=== PATIENT | female | born 1940 | race Caucasian/White ===

== ENCOUNTER 2019-11-02 15:08 | Inpatient (IN) | payer MEDICARE, OTHER ==
--- NOTE | 2019-11-02 15:37 | PDOC ---
History of Present Illness - General Chief Complaint: Wound Stated Complaint: LT HIP DRAINAGE Time Seen by Provider: 11/02/19 15:36 History Source: Patient Exam Limitations: No Limitations - History of Present Illness Initial Comments: 11/02/19 16:11 79yF w PMHx spinal fusion in c-collar, protein-calorie malnutrition, suspected Crohn's disease s/p multiple abdominal surgeries, Parkison's, on eliquis, hypothyrodism, unused R arm PICC line, multiple abdominal surgeries presenting from [facility] w 5d subjective low grade fevers, RLQ pain, and 2d midline ABD wall outpouching. First noted abd outpouching w yellow discharge while showering 2d ago, not painful. ABD pain not associated w urination/BM. Not relieved w morphine. 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 Denies n/v, cough, chest pain, SOB, urinary/bowel mvmt changes, ABD distension Past History - Medical History Allergies/Adverse Reactions: Allergies Allergy/AdvReac Type Severity Reaction Status Date / Time azithromycin [From Zithromax] Allergy Verified 11/02/19 15:12 ciprofloxacin Allergy Verified 11/02/19 15:12 Home Medications: Ambulatory Orders Acetaminophen [Pain Reliever Adult] 100 mg PO TID 11/02/19 Apixaban [Eliquis -] 5 mg PO BID 11/02/19 Carbidopa/Levodopa [Carbidopa-Levodopa 25-100 Tab] 1 each PO Q4H 11/02/19 Diclofenac Sodium [Diclofono] 2.5 gm TP BID 11/02/19 Diphenoxylate HCl/Atropine [Lomotil Tablet] 1 each PO QID 11/02/19 Donepezil HCl [Aricept -] 5 mg PO DAILY 11/02/19 Levothyroxine [Synthroid -] 25 mcg PO DAILY 11/02/19 Lidocaine 5% Patch [Lidoderm Patch -] 1 patch TP DAILY 11/02/19 Linezolid 15 ml PO DAILY 11/02/19 Loperamide HCl [Imodium A-D] 2 mg PO QID PRN 11/02/19 Miconazole Nitrate [Anti-Fungal Powder] 71 gm TP BID 11/02/19 Morphine Sulfate 15 mg PO TID 11/02/19 Ondansetron HCl [Zofran] 4 mg PO Q6H 11/02/19 Oxycodone HCl [Roxicodone] 5 mg PO HS 11/02/19 Zinc Oxide 500 gm TP BID 11/02/19 COPD: No GI Disorders: Yes (crohns) Other medical history: parkinson - Surgical History Abdominal Surgery: Yes Appendectomy: Yes - Reproductive History Is Patient Now?: No - Psycho-Social/Smoking History Smoking History: Smoker current status UNK Have you smoked in the past 12 months: No Information on smoking cessation initiated: No - Substance Abuse Hx (Audit-C & DAST Scrn) How often the patient has a drink containing alcohol: Monthly or less Number of drinks the patient has on a typical day: 1 or 2 How often the patient has six or more drinks on one occasion: Less than monthly Score: In Men: 4 or > Positive; In Women: 3 or > Positive: 2 Screen Result (Pos requires Nsg. Audit-10AR): Negative In the last yr the pt used illegal drug/Rx for NonMed reason: No Score: Yes response is considered Positive: 0 Screen Result (Positive result requires Nsg. DAST-10): Negative Review of Systems - Review of Systems Constitutional: No: Chills, Fever HEENTM: No: Eye Pain, Nose Pain Respiratory: No: Cough, Shortness of Breath Cardiac (ROS): No: Chest Pain, Palpitations ABD/GI: No: Abdominal Distended, Constipated, Diarrhea, Nausea, Vomiting : No: Burning, Dysuria Musculoskeletal: No: Back Pain, Joint Pain Integumentary: No: Bruising, Flushing Neurological: No: Headache, Seizure Psychiatric: No: Anxiety, Depression Endocrine: No: Intolerance to Cold, Intolerance to Heat Hematologic/Lymphatic: No: Anemia, Blood Clots *Physical Exam - Vital Signs Last Vital Signs Temp Pulse Resp BP Pulse Ox 98.9 F 77 18 135/50 L 100 11/02/19 15:12 11/02/19 15:12 11/02/19 15:12 11/02/19 15:12 11/02/19 15:12 - Physical Exam General Appearance: Yes: Nourished, Appropriately Dressed, Mild Distress HEENT: positive: EOMI, ALEXANDRA, Normal Voice, Hearing Grossly Normal. negative: Scleral Icterus (R), Scleral Icterus (L) Respiratory/Chest: positive: Lungs Clear, Normal Breath Sounds. negative: Chest Tender, Respiratory Distress, Crackles, Rales, Rhonchi, Stridor, Wheezing Cardiovascular: positive: Regular Rhythm, Regular Rate, S1, S2. negative: Edema, Murmur Gastrointestinal/Abdominal: positive: Normal Bowel Sounds, Tender (mild RUQ, RLQ), Flat, Soft, Other (lower midline abd surgical scars, 2cm pink outpouching w minimal yellow discharge) Musculoskeletal: negative: CVA Tenderness (R), CVA Tenderness (L) Integumentary: positive: Normal Color, Warm Neurologic: positive: Fully Oriented, Alert, Normal Mood/Affect, Normal Response, Responsive ED Treatment Course - LABORATORY CBC & Chemistry Diagram: 11/02/19 16:30 11/02/19 16:30 Medical Decision Making - Medical Decision Making 11/02/19 16:12 CT A/P w IV/PO contrast EKG - NSR, HR 74, QTc 455, no ST changes --- 79yF w PMHx spinal fusion in c-collar, protein-calorie malnutrition, Crohn's disease, Parkison's, on eliquis, hypothyrodism, unused R arm PICC line, multiple abdominal surgeries presenting from [facility] w 5d subjective low grade fevers, RLQ pain, and 2d midline ABD wall hernia adhesions, vs postop infection vs fistula vs hernia (reduceable, non painful). Low concern for SBO (not distended, still has BM) Also has hypoK 3.1, anemia 7.1 Given 10x3 KCl. Pt not complaining of pain while resting in bed Anticipate admit Signed out to night team - go to CT @730pm, finished drinking 525pm - dispo pending CT read Discharge - Discharge Information Problems reviewed: Yes Clinical Impression/Diagnosis: Abdominal pain Qualifiers: Abdominal location: right lower quadrant Qualified Code(s): R10.31 - Right lower quadrant pain Abdominal hernia Qualifiers: Hernia type: unspecified Obstruction and gangrene presence: without obstruction or gangrene Recurrence: non-recurrent Qualified Code(s): K46.9 - Unspecified abdominal hernia without obstruction or gangrene Condition: Stable - Follow up/Referral Referrals: ON STAFF,NOT [Primary Care Provider] - - Patient Discharge Instructions - Post Discharge Activity
--- NOTE | 2019-11-02 15:43 | PDOC ---
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 Patient Denies any chest pain, shortness of breath, blood per rectum, she does endorse chronic diarrhea but is unchanged from prior. Patient notes that most of her prior [place] rgeries were done at [facility]. - Physicial Exam PE: 11/02/19 16:37 GENERAL: The patient is awake, alert, and fully oriented, Nontoxic - in no acute distress. HEAD: Normocephalic, atraumatic. EYES: extraocular movements intact, sclera anicteric, conjunctiva clear. ENT: Normal voice, Moist mucous membranes. NECK: Normal range of motion, supple, Posterior cervical spine (non tender, no erythema, wound well healed) LUNGS: Breath sounds equal, clear to auscultation bilaterally. No wheezes, no rhonchi, no rales. HEART: Regular rate and rhythm, normal S1 and S2 without murmur, rub or gallop. ABDOMEN: Soft, Open wound with clear yellowish discharge in the inferior portion of her well-healed abdominal wound, There is mild erythema inferior to it and it is mildly tender to palpation, No rebound or guarding EXTREMITIES: Normal range of motion, no edema. NEUROLOGICAL: No facial assymetry, Normal speech, Moving all 4 extremities spontaneously and symmetrically PSYCH: Normal mood, normal affect. SKIN: Warm, Dry, normal turgor, - Medical Decision Making 11/02/19 16:38 Concern for possible fistula will obtain ct abdomen w contrast for further evaluation pt otheriwse comfortable signed out to evening team to reassess and disposition Heart Score/ECG Review - ECG Impressions Comment:: 11/02/19 18:19 Twelve-lead EKG was performed and reviewed by me. There is normal sinus rhythm with a normal rate. rate of [address] wave changes suggestive of acute ischemia Discharge - Discharge Information Problems reviewed: Yes Clinical Impression/Diagnosis: Hypokalemia, Intra-abdominal abscess, Fistula Abdominal pain Qualifiers: Abdominal location: right lower quadrant Qualified Code(s): R10.31 - Right lower quadrant pain Abdominal hernia Qualifiers: Hernia type: unspecified Obstruction and gangrene presence: without obstruction or gangrene Recurrence: non-recurrent Qualified Code(s): K46.9 - Unspecified abdominal hernia without obstruction or gangrene Condition: Stable Disposition: TRANSFER ACUTE CARE/OTHER HOSP - Follow up/Referral - Patient Discharge Instructions - Post Discharge Activity
[2019-11-02 16:43] LABS: BASO % 0.7 % (0-2.0); EOS % 4.7 % (0-4.5); HEMATOCRIT 21.7 % (32.4-45.2); HEMOGLOBIN 7.1 GM/dL (10.7-15.3); LYMPH % 25.1 % (8-40); MCH 30.7 pg (25.7-33.7); MCHC 32.7 g/dl (32.0-36.0); MEAN CELL VOLUME 93.7 fl (80-96); MEAN PLT VOLUME 7.6 fl (7.5-11.1); MONO % 15.2 % (3.8-10.2); NEUT % 54.3 % (42.8-82.8); PLATELET COUNT 399 K/MM3 (134-434); RBC 2.31 M/mm3 (3.60-5.2); RDW 17.1 % (11.6-15.6); WHITE BLOOD COUNT 9.3 K/mm3 (4.0-10.0)
[2019-11-02 16:55] LABS: INR 1.19 (0.83-1.09); PROTHROMBIN TIME (PATIENT) 14.1 SEC (9.7-13.0)
[2019-11-02 17:08] LABS: ALBUMIN 2.8 g/dl (3.4-5.0); ALK PHOS 140 U/L (45-117); ANION GAP 9 MMOL/L (8-16); BILIRUBIN,TOTAL 0.4 mg/dL (0.2-1); BLOOD UREA NITROGEN 9.7 mg/dL (7-18); CALCIUM 8.3 mg/dL (8.5-10.1); CHLORIDE 108 mmol/L (98-107); CO2 23 mmol/L (21-32); CREATININE 0.4 mg/dL (0.55-1.3); GLUCOSE,RANDOM 89 mg/dL (74-106); POTASSIUM 3.1 mmol/L (3.5-5.1); SGOT/AST 8 U/L (15-37); SGPT/ALT < 6 U/L (13-61); SODIUM 140 mmol/L (136-145); TOT PROT 6.7 g/dl (6.4-8.2)
[2019-11-02] MEDS ORDERED: KCL 10 MEQ IVPB 10 MEQ/100 ML INFUS.BAG IVPB ONE ×3 (18:19→22:06)
[2019-11-02] MEDS: KCL 10 MEQ IVPB 10 MEQ/100 ML INFUS.BAG IVPB SCH ×3 (18:37→22:52)
[2019-11-02] MEDS ORDERED: morphine CARPU-JECT 4 MG/1 ML DISP.SYRIN IVPUSH ONE (19:25)
--- NOTE | 2019-11-02 19:31 | PDOC ---
*Physical Exam - Vital Signs Last Vital Signs Temp Pulse Resp BP Pulse Ox 98.3 F 88 14 127/58 L 100 11/02/19 19:20 11/02/19 19:20 11/02/19 19:20 11/02/19 19:20 11/02/19 19:20 <Lluvia Downing - Last Filed: 11/02/19 20:58> - Vital Signs Last Vital Signs Temp Pulse Resp BP Pulse Ox 98.9 F 77 14 135/50 L 100 11/02/19 15:12 11/02/19 15:12 11/02/19 15:40 11/02/19 15:12 11/02/19 15:40 - Physical Exam 11/03/19 08:11 GENERAL: Awake, alert, and fully oriented, in mild distress HEAD: No signs of trauma, normocephalic, atraumatic EYES: PERRLA, EOMI, sclera anicteric, conjunctiva clear ENT: Auricles normal inspection, hearing grossly normal, nares patent, oropharynx clear without exudates. Moist mucosa NECK:pt in c-collar LUNGS: No distress, speaks full sentences, clear to auscultation bilaterally HEART: Regular rate and rhythm, normal S1 and S2, no murmurs, rubs or gallops, peripheral pulses normal and equal bilaterally. ABDOMEN: Normal bowel sounds, tenderness to palpation in RUQ,RLQ, lower midline abd surgical scar, 2 cm pink outpaching with minimal yellow discharge EXTREMITIES : Normal inspection, no edema. No clubbing or cyanosis. NEUROLOGICAL: . Normal speech no focal sensorimotor deficits SKIN: Warm, Dry, normal turgor, no rashes or lesions noted <Guanaco Cheatham - Last Filed: 11/03/19 08:14> ED Treatment Course - LABORATORY CBC & Chemistry Diagram: 11/02/19 16:30 11/02/19 16:30 - ADDITIONAL ORDERS Additional order review: Laboratory Results 11/02/19 11/02/19 11/02/19 16:30 16:30 16:30 PT with INR 14.10 H INR 1.19 H Sodium Potassium Chloride Carbon Dioxide Anion Gap BUN Creatinine Est GFR (CKD-EPI)AfAm Est GFR (CKD-EPI)NonAf Random Glucose Lactic Acid 0.8 Calcium Total Bilirubin AST ALT Alkaline Phosphatase Total Protein Albumin Blood Type O POSITIVE Antibody Screen Negative 11/02/19 16:30 PT with INR INR Sodium 140 Potassium 3.1 L Chloride 108 H Carbon Dioxide 23 Anion Gap 9 BUN 9.7 Creatinine 0.4 L Est GFR (CKD-EPI)AfAm 113.21 Est GFR (CKD-EPI)NonAf 97.68 Random Glucose 89 Lactic Acid Calcium 8.3 L Total Bilirubin 0.4 AST 8 L ALT < 6 L Alkaline Phosphatase 140 H Total Protein 6.7 Albumin 2.8 L Blood Type Antibody Screen 11/02/19 16:30 RBC 2.31 L MCV 93.7 MCHC 32.7 RDW 17.1 H MPV 7.6 Neutrophils % 54.3 Lymphocytes % 25.1 Monocytes % 15.2 H Eosinophils % 4.7 H Basophils % 0.7 - Medications Given in the ED: ED Medications Discontinued Medications Generic Name Dose Route Start Last Admin Trade Name Freq PRN Reason Stop Dose Admin Potassium Chloride 10 meq in 100 mls @ 100 mls/hr 11/02/19 17:45 11/02/19 20:26 Potassium Chloride 10 Meq Premix Ivpb - IVPB 11/02/19 20:44 100 mls/hr Q60M QUETA Administration Morphine Sulfate 4 mg 11/02/19 19:25 11/02/19 20:27 Morphine Injection - IVPUSH 11/02/19 19:26 4 mg ONCE ONE Administration <Lluvia Downing - Last Filed: 11/02/19 20:58> - LABORATORY CBC & Chemistry Diagram: 11/02/19 16:30 11/02/19 22:30 - ADDITIONAL ORDERS Additional order review: Laboratory Results 11/02/19 11/02/19 11/02/19 16:30 16:30 16:30 PT with INR 14.10 H INR 1.19 H Sodium Potassium Chloride Carbon Dioxide Anion Gap BUN Creatinine Est GFR (CKD-EPI)AfAm Est GFR (CKD-EPI)NonAf Random Glucose Lactic Acid 0.8 Calcium Total Bilirubin AST ALT Alkaline Phosphatase Total Protein Albumin Blood Type O POSITIVE Antibody Screen Negative 11/02/19 16:30 PT with INR INR Sodium 140 Potassium 3.1 L Chloride 108 H Carbon Dioxide 23 Anion Gap 9 BUN 9.7 Creatinine 0.4 L Est GFR (CKD-EPI)AfAm 113.21 Est GFR (CKD-EPI)NonAf 97.68 Random Glucose 89 Lactic Acid Calcium 8.3 L Total Bilirubin 0.4 AST 8 L ALT < 6 L Alkaline Phosphatase 140 H Total Protein 6.7 Albumin 2.8 L Blood Type Antibody Screen 11/02/19 16:30 RBC 2.31 L MCV 93.7 MCHC 32.7 RDW 17.1 H MPV 7.6 Neutrophils % 54.3 Lymphocytes % 25.1 Monocytes % 15.2 H Eosinophils % 4.7 H Basophils % 0.7 <Guanaco Cheatham - Last Filed: 11/03/19 08:14> Medical Decision Making - Medical Decision Making 11/02/19 19:29 79 yo female with Cervical collar, possible crohns, and history of colovaginal fistula presents to ED for fever and RLQ pain and outpouchng. Pt will get rule out between fistula vs herniavs infection. Pt surgeon at [facility] will call if surgical pathology. K was low giving K. Contrast given at 5:[address] at 7:30. 11/02/19 21:[address] shows fistula with RLQ abscess. Pt surgeon is Dr. Kike Arana of [facility], but pt refuses to add him to care because pt is sueing surgeon and also refuses transfer. Pt will be given Vancomycin and zosyn and will be admitted. Pt adamant about not getting surgery today consult to surgery deferred to admitting team. 11/02/19 22:[address] discussion with resident Dr. Miles . Pt HPI , ED course and current plan of management was discussed. Will admit pt to med/surg to Dr. Campos. 11/02/19 22:44 Pt was given loperamide because pt having active diarrhea. Pt explains that she takes loperamide after every meal and was being very difficult when explaining that loperamide may not be best course of action. Pt understood but still wanted loperamide for symptoms so gave 2 mg loperamide. <Guanaco Cheatham - Last Filed: 11/03/19 08:14> Discharge - Discharge Information Problems reviewed: Yes - Admission Yes <Lluvia Downing - Last Filed: 11/02/19 20:58> <Guanaco Cheatham - Last Filed: 11/03/19 08:14> - Discharge Information Clinical Impression/Diagnosis: Hypokalemia, Intra-abdominal abscess, Fistula Abdominal pain Qualifiers: Abdominal location: right lower quadrant Qualified Code(s): R10.31 - Right lower quadrant pain Abdominal hernia Qualifiers: Hernia type: unspecified Obstruction and gangrene presence: without obstruction or gangrene Recurrence: non-recurrent Qualified Code(s): K46.9 - Unspecified abdominal hernia without obstruction or gangrene Condition: Stable
[2019-11-02] MEDS ORDERED: morphine SULFATE 4 MG/ML VIAL ONE (19:36)
[2019-11-02] MEDS ORDERED: MAGNESIUM SULF 50% (8.12 MEQ/2 ML-1 GM VIAL) IVPB ONE (19:43)
[2019-11-02] MEDS ORDERED: MAGNESIUM SULF 50% (8.12 MEQ/2 ML-1 GM VIAL) ONE (20:12)
[2019-11-02] MEDS ORDERED: VANCOMYCIN 1,000 MG in DEXTROSE 5%-WATER - 250 ML IVPB ONE (20:57)
[2019-11-02] MEDS ORDERED: PIPERACILLIN/TAZOB 4.5 GM 4.5 GM in DEXTROSE 5%-WATER 100 ML IVPB ONE (20:57)
[2019-11-02] MEDS ORDERED: SODIUM CHLORIDE 1,000 ML IV STA (20:57)
--- NOTE | 2019-11-02 21:08 | PDOC ---
*Physical Exam - Vital Signs Last Vital Signs Temp Pulse Resp BP Pulse Ox 98.3 F 88 14 127/58 L 100 11/02/19 19:20 11/02/19 19:20 11/02/19 19:20 11/02/19 19:20 11/02/19 19:20 ED Treatment Course - LABORATORY CBC & Chemistry Diagram: 11/02/19 16:30 11/02/19 22:30 - ADDITIONAL ORDERS Additional order review: Laboratory Results 11/02/19 11/02/19 11/02/19 16:30 16:30 16:30 PT with INR 14.10 H INR 1.19 H Sodium Potassium Chloride Carbon Dioxide Anion Gap BUN Creatinine Est GFR (CKD-EPI)AfAm Est GFR (CKD-EPI)NonAf Random Glucose Lactic Acid 0.8 Calcium Total Bilirubin AST ALT Alkaline Phosphatase Total Protein Albumin Blood Type O POSITIVE Antibody Screen Negative 11/02/19 16:30 PT with INR INR Sodium 140 Potassium 3.1 L Chloride 108 H Carbon Dioxide 23 Anion Gap 9 BUN 9.7 Creatinine 0.4 L Est GFR (CKD-EPI)AfAm 113.21 Est GFR (CKD-EPI)NonAf 97.68 Random Glucose 89 Lactic Acid Calcium 8.3 L Total Bilirubin 0.4 AST 8 L ALT < 6 L Alkaline Phosphatase 140 H Total Protein 6.7 Albumin 2.8 L Blood Type Antibody Screen 11/02/19 16:30 RBC 2.31 L MCV 93.7 MCHC 32.7 RDW 17.1 H MPV 7.6 Neutrophils % 54.3 Lymphocytes % 25.1 Monocytes % 15.2 H Eosinophils % 4.7 H Basophils % 0.7 - Medications Given in the ED: ED Medications Discontinued Medications Generic Name Dose Route Start Last Admin Trade Name Freq PRN Reason Stop Dose Admin Potassium Chloride 10 meq in 100 mls @ 100 mls/hr 11/02/19 17:45 11/02/19 20:26 Potassium Chloride 10 Meq Premix Ivpb - IVPB 11/02/19 20:44 100 mls/hr Q60M QUETA Administration Morphine Sulfate 4 mg 11/02/19 19:25 11/02/19 20:27 Morphine Injection - IVPUSH 11/02/19 19:26 4 mg ONCE ONE Administration Medical Decision Making - Medical Decision Making 11/02/19 21:05 I received pt on signout. Pt receievd her CT abd pelvis; it shows that she has an abscess in the RLQ vs appendicitis; pt tells us her appendix was removed years ago. Pt also has a small fistula tract in the area of concern in her abdomen. Pt;s CT shows swollen loops of bowel perhaps consistent with obstruction. Pt demands to eat something. States that she has no obstrection and that she is hungry and moving her bowels. Pt refusing to go back to her [facility] surgeon or to that hospital, as she is suing them. Pt wants to stay here or go to [facility] in [place]. Pt will be admitted to our medical hospitalist team. They can consult surgeons pulmonologist/intensivist. 11/02/19 21:08 Pt will be given zosyn and vancomycin and she will be given something to eat. Discharge - Discharge Information Problems reviewed: Yes Clinical Impression/Diagnosis: Hypokalemia, Intra-abdominal abscess, Fistula Abdominal pain Qualifiers: Abdominal location: right lower quadrant Qualified Code(s): R10.31 - Right lower quadrant pain Abdominal hernia Qualifiers: Hernia type: unspecified Obstruction and gangrene presence: without obstruction or gangrene Recurrence: non-recurrent Qualified Code(s): K46.9 - Unspecified abdominal hernia without obstruction or gangrene Condition: Stable - Follow up/Referral - Patient Discharge Instructions - Post Discharge Activity
[2019-11-02] MEDS ORDERED: MAGNESIUM 1GM/D5W - 1 GM/100 ML IVPB IVPB ONE (21:17)
[2019-11-02] MEDS ORDERED: PIPERACILLIN/TAZOB 4.5 GM 4.5 GM/100 ML BAG IVPB ONE (21:17)
[2019-11-02] MEDS ORDERED: VANCOMYCIN 1 GRAM (PRE-DOCKED) 1,000 MG/250 ML BAG IVPB ONE (21:17)
--- NOTE | 2019-11-02 22:08 | PN ---
Teaching Attending Note Name of Resident: Prashant Roberts ATTENDING PHYSICIAN STATEMENT I saw and evaluated the patient. I reviewed the resident's note and discussed the case with the resident. I agree with the resident's findings and plan as documented. SUBJECTIVE: Patient is an 79 year old woman with a PMH of Parkinson' disease, Spinal fusion in C-collar (?on Eliquis), Protein-calorie malnutrition, Hypothyrodism, Suspected Crohn's disease, Multiple abdominal surgeries (colovaginal fistula? with complications, possible partial colectomy), Unused Right PICC line who presents with fevers and 2 days of abdominal wound discharge. States she was showering a few days ago and noticed some discharge and drainage from her anterior abdominal wall. Patient Denies any chest pain, shortness of breath or blood per rectum. Reports having chronic diarrhea but is unchanged from prior. Patient notes that most of her prior surgeries were done at [facility] in [place] but does not want to be transferred to [place]. Denies alcohol, tobacco or illicit drug use. No sick contacts or recent travels. Family history is unremarkable. OBJECTIVE: Alert Vital Signs Period Temp Pulse Resp BP Sys/Cardenas Pulse Ox Last 24 Hr 98.3 F-98.9 F 77-88 14-18 127-135/50-58 100-100 HEENT: No Jaundice, eye redness or discharge, PERRLA, EOMI. Normocephalic, atraumatic. External ears are normal and hearing is grossly intact. No nasal discharge. Neck: Supple, nontender. No palpable adenopathy or thyromegaly. No JVD Chest: Good effort. Clear to auscultation and percussion. Heart: Regular. No S3, rub or murmur Abdomen: Not distended, soft. Wound in the lower abdomen with clear yellowish discharge; mild surrounding erythema, tender to palpation. No HSM. No rebound or guarding. Normal bowel sounds. Ext: Peripheral pulses intact. No leg edema. Skin: Warm and dry. No petechiae, rash or ecchymosis. Neuro: Alert. Oriented x3. CN 2-12 grossly intact. Sensation grossly intact in all four extremities and DTR are symmetric. Psych: Appropriate mood and affect. Good insight. Home Medications Medication Instructions Recorded Acetaminophen [Pain Reliever Adult] 100 mg PO TID 11/02/19 Apixaban [Eliquis -] 5 mg PO BID 11/02/19 Carbidopa/Levodopa 1 each PO Q4H 11/02/19 [Carbidopa-Levodopa 25-100 Tab] Diclofenac Sodium [Diclofono] 2.5 gm TP BID 11/02/19 Diphenoxylate HCl/Atropine 1 each PO QID 11/02/19 [Lomotil Tablet] Donepezil HCl [Aricept -] 5 mg PO DAILY 11/02/19 Levothyroxine [Synthroid -] 25 mcg PO DAILY 11/02/19 Lidocaine 5% Patch [Lidoderm Patch 1 patch TP DAILY 11/02/19 -] Linezolid 15 ml PO DAILY 11/02/19 Loperamide HCl [Imodium A-D] 2 mg PO QID PRN 11/02/19 Miconazole Nitrate [Anti-Fungal 71 gm TP BID 11/02/19 Powder] Morphine Sulfate 15 mg PO TID 11/02/19 Ondansetron HCl [Zofran] 4 mg PO Q6H 11/02/19 Oxycodone HCl [Roxicodone] 5 mg PO HS 11/02/19 Zinc Oxide 500 gm TP BID 11/02/19 Abnormal Lab Results 11/02/19 11/02/19 11/02/19 16:30 16:30 16:30 RBC 2.31 L Hgb 7.1 L Hct 21.7 L RDW 17.1 H Monocytes % 15.2 H Eosinophils % 4.7 H PT with INR 14.10 H INR 1.19 H Potassium 3.1 L Chloride 108 H Creatinine 0.4 L Calcium 8.3 L AST 8 L ALT < 6 L Alkaline Phosphatase 140 H Albumin 2.8 L 11/02/19 22:30 RBC Hgb Hct RDW Monocytes % Eosinophils % PT with INR INR Potassium 3.4 L Chloride Creatinine Calcium AST ALT Alkaline Phosphatase Albumin Current Medications Generic Name Dose Route Start Last Admin Trade Name Freq PRN Reason Stop Dose Admin Acetaminophen 650 mg 11/03/19 01:36 Tylenol - PO Q6H PRN Fever Or Pain Heparin Sodium (Porcine) 5,000 unit 11/03/19 06:00 Heparin - SQ TID QUETA Sodium Chloride 1,000 mls @ 75 mls/hr 11/03/19 02:00 11/03/19 02:17 Normal Saline - IV 75 mls/hr ASDIR QUETA Administration Potassium Chloride 10 meq in 100 mls @ 100 mls/hr 11/03/19 02:15 11/03/19 02:32 Potassium Chloride 10 Meq Premix Ivpb - IVPB 11/03/19 05:14 100 mls/hr Q60M QUETA Administration ASSESSMENT AND PLAN: 1. Abdominal abscess/fistula - CT abdomnen/pelvis with IV and oral contrast shows that she has an abscess in the RLQ and also a small fistula tract in the area of concern in her abdomen; swollen loops of bowel perhaps consistent with obstruction. Patient insists she is moving her bowels well. Pulmonary nodules were also noted on CT scan - will get a chest CT tomorrow and consult Pulmonary. Patient is refusing to go back to her [facility]. ER staff prescribed IV Vancomycin, Zosyn, IV MgSO4, Imodium, IV KCL, IV Morphine and IV NS for the patient. Will send abdominal wound discharge for culture, keep her NPO, continue antibiotics, IV NS and consult Surgery and ID. Viral testing for COVID-19 ordered and patient placed on airborne, droplet and contact isolation. EKG shows NSR at 74/minute and QTc [address]-T wave changes. Initial troponin is negative. Will avoid drugs that may prolong QTc. Hypokalemia is unexplained. Will check serum magnesium, give IV and PO KCL. Will continue comprehensive care for all of patients comorbid conditions including Synthroid for hypothyroidism. 2. Hypoalbuminemia/Under weight - Possibly due to combined effects of malnutrition and inflammation associated with comorbid conditions. Will ensure adequate dietary protein intake and also consult metal tube cutter. Urinalysis pending. 3. Severe anemia - Likely multifactorial. Will do basic anemia work up including serial stool guaiacs, reticulocyte count and iron studies. Would need PRBC transfusion before any planned surgery. Would benefit from Procrit therapy once iron replete. 4. DVT prophylaxis - Will hold Eliquis for now in case she needs surgery. Will use Heparin 5000 u sq tid. 5. Advance directives - Full code
[2019-11-02] MEDS ORDERED: LOPERAMIDE HCL 2 MG CAPSULE PO ONE (22:43)
[2019-11-02] MEDS ORDERED: LOPERAMIDE HCL 2 MG CAPSULE ONE (23:00)
[2019-11-02 23:06] LABS: POTASSIUM 3.4 mmol/L (3.5-5.1)
[2019-11-03] MEDS ORDERED: ACETAMINOPHEN 325 MG TABLET (FP) PO PRN (01:36)
[2019-11-03] MEDS ORDERED: POTASSIUM CHLORIDE TABS 10 MEQ TABLET.ER (FP) PO ONE (01:37)
[2019-11-03] MEDS ORDERED: MORPHINE SULFATE 2 MG/ML VIAL IVPUSH ONE (01:56)
[2019-11-03 02:02] VITALS: BMI 16.6
[2019-11-03] MEDS: SODIUM CHLORIDE 1,000 ML IV SCH ×2 (02:17→21:36)
[2019-11-03] MEDS: KCL 10 MEQ IVPB 10 MEQ/100 ML INFUS.BAG IVPB SCH ×3 (02:32→04:33)
[2019-11-03 04:29] LABS: MAGNESIUM 1.7 mg/dL (1.8-2.4)
[2019-11-03] MEDS: HEPARIN NA (PORCINE) 5,000 UNITS/ML 1ML VIAL SQ SCH ×3 (06:12→21:35)
--- NOTE | 2019-11-03 06:38 | HP ---
CHIEF COMPLAINT: RLQ pain, abdominal wall outpouching, yellow discharge PCP: HISTORY OF PRESENT ILLNESS: 79 F PMH Parkinson's, Hypothyroidism, protein-calorie malnutrition, s/p spinal fusion now with a c-collar, unused R arm PICC line, presented from [facility] with 5 days of subjective fever and RLQ pain. 2 days ago, she started experiencing a midline abdominal wall outpouching while showering that was not painful. Yellow discharge was appreciated when a towel was applied to the area. Endorses no improving factors for the pain, but endorses it was TTP. ER course was notable for: (1) Hgb/Hct 7.1/21.7, (2) K+ 3.1 (3) CTAP: 6.4 X 1.1 fluid & air structure, on basis of abscess. Subcentimeter p ocket of air within pelvic peritoneal cavity; small abscess or fistula tract. Air/gas within subcutaneous fat. Severly dilated contrast opacified small bowel loops within the lower plevis with a 4.3 cm diameter, which could be on the basis of partial obstruction or localized ileus. Common bile duct dilated at 1 cm diameter. 0.7 cm opacities within superior segment R lower lobe, which could represent scarring or nonspecific nodules. 3 month follow-up CT suggested (4) IV Vancomycin, Zosyn, Imodium, IV KCL, IV Morphine, IV magnesium, NS Recent Travel: denies PAST MEDICAL HISTORY: Parkinson's, Hypothyroidism, Crohn's disease, protein-calorie malnutrition, s/p spinal fusion now with a c-collar, R arm PICC line Pt was evaluated for neck pain and underwent spinal fusion about 2.5 months ago. Endorsed that she was taking linezolid for "pus" in her abdomen and had a R arm picc line for this reason. Pt endorses chronic diarrhea after her colectomy procedure. PAST SURGICAL HISTORY: R hip replacement, appendectomy (1948), colon-vaginal fistula (2019), colon resection s/p colostomy (2019), colostomy reversal Social History: Smoking:denied Alcohol: denied Drugs: denied resides at [facility]. Allergies azithromycin [From Zithromax] Allergy (Verified 11/02/19 15:12) ciprofloxacin Allergy (Verified 11/02/19 15:12) HOME MEDICATIONS: Home Medications Medication Instructions Recorded Acetaminophen [Pain Reliever Adult] 100 mg PO TID 11/02/19 Apixaban [Eliquis -] 5 mg PO BID 11/02/19 Carbidopa/Levodopa 1 each PO Q4H 11/02/19 [Carbidopa-Levodopa 25-100 Tab] Diclofenac Sodium [Diclofono] 2.5 gm TP BID 11/02/19 Diphenoxylate HCl/Atropine 1 each PO QID 11/02/19 [Lomotil Tablet] Donepezil HCl [Aricept -] 5 mg PO DAILY 11/02/19 Levothyroxine [Synthroid -] 25 mcg PO DAILY 11/02/19 Lidocaine 5% Patch [Lidoderm Patch 1 patch TP DAILY 11/02/19 -] Linezolid 15 ml PO DAILY 11/02/19 Loperamide HCl [Imodium A-D] 2 mg PO QID PRN 11/02/19 Miconazole Nitrate [Anti-Fungal 71 gm TP BID 11/02/19 Powder] Morphine Sulfate 15 mg PO TID 11/02/19 Ondansetron HCl [Zofran] 4 mg PO Q6H 11/02/19 Oxycodone HCl [Roxicodone] 5 mg PO HS 11/02/19 Zinc Oxide 500 gm TP BID 11/02/19 REVIEW OF SYSTEMS CONSTITUTIONAL: Absent: fever, chills, diaphoresis, generalized weakness, malaise, loss of appetite, weight change HEENT: Absent: rhinorrhea, nasal congestion, throat pain, throat swelling, difficulty swallowing, mouth swelling, ear pain, eye pain, visual changes CARDIOVASCULAR: Absent: chest pain, syncope, palpitations, irregular heart rate, lightheadedne ss, peripheral edema RESPIRATORY: Absent: cough, shortness of breath, dyspnea with exertion, orthopnea, wheezing, stridor, hemoptysis GASTROINTESTINAL: nausea, vomiting, chronic diarrhea Absent: abdominal pain, abdominal distension, constipation, melena, hematochezia GENITOURINARY: Absent: dysuria, frequency, urgency, hesitancy, hematuria, flank pain, genital pain MUSCULOSKELETAL: Absent: myalgia, arthralgia, joint swelling, back pain, neck pain SKIN: Absent: rash, itching, pallor HEMATOLOGIC/IMMUNOLOGIC: Absent: easy bleeding, easy bruising, lymphadenopathy, frequent infections ENDOCRINE: Absent: unexplained weight gain, unexplained weight loss, heat intolerance, cold intolerance NEUROLOGIC: Absent: headache, focal weakness or paresthesias, dizziness, unsteady gait, seizure, mental status changes, bladder or bowel incontinence PSYCHIATRIC: Absent: anxiety, depression, suicidal or homicidal ideation, hallucinations. PHYSICAL EXAMINATION Vital Signs - 24 hr 11/02/19 11/02/19 11/02/19 15:12 15:40 19:20 Temperature 98.9 F 98.3 F Pulse Rate 77 Pulse Rate [ 88 Radial] Respiratory 18 14 14 Rate Blood Pressure 135/50 L Blood Pressure 127/58 L [Left Arm] O2 Sat by Pulse 100 100 100 Oximetry (%) 11/02/19 11/03/19 11/03/19 23:10 01:08 01:26 Temperature 98.5 F 98.5 F Pulse Rate 79 79 Pulse Rate [ 82 Radial] Respiratory 15 16 15 Rate Blood Pressure 127/50 L 127/50 L Blood Pressure 153/61 [Left Arm] O2 Sat by Pulse 100 100 100 Oximetry (%) 11/03/19 11/03/19 03:00 06:00 Temperature 98.1 F Pulse Rate 71 Pulse Rate [ Radial] Respiratory 16 16 Rate Blood Pressure 104/55 L Blood Pressure [Left Arm] O2 Sat by Pulse 100 95 Oximetry (%) GENERAL: Awake, alert, and fully oriented, in no acute distress. HEAD: Normal with no signs of trauma. EYES: Pupils equal, round and reactive to light, extraocular movements intact, sclera anicteric, conjunctiva clear. No lid lag. EARS, NOSE, THROAT: Ears normal, nares patent, oropharynx clear without exudates. Moist mucous membranes. NECK: Normal range of motion, supple without lymphadenopathy, JVD, or masses. LUNGS: Breath sounds equal, clear to auscultation bilaterally. No wheezes, and no crackles. No accessory muscle use. HEART: Regular rate and rhythm, normal S1 and S2 without murmur, rub or gallop. ABDOMEN: Soft, normoactive bowel sounds, wound in area below umbilicus w/ yellow discharge. TTP. lower abd surgical scar UPPER EXTREMITIES: 2+ pulses, warm, well-perfused. No cyanosis. No clubbing. No peripheral edema. 4/5 strength. sensation intact LOWER EXTREMITIES: 2+ pulses, warm, well-perfused. No calf tenderness. No peripheral edema. 3/5 strength b/l. Sensation intact NEUROLOGICAL: Cranial nerves II-XII intact. Normal speech. PSYCHIATRIC: Appropriate affect. Laboratory Results - last 24 hr 11/02/19 11/02/19 11/02/19 16:30 16:30 16:30 WBC 9.3 RBC 2.31 L Hgb 7.1 L Hct 21.7 L MCV 93.7 MCH 30.7 MCHC 32.7 RDW 17.1 H Plt Count 399 MPV 7.6 Absolute Neuts (auto) 5.1 Neutrophils % 54.3 Lymphocytes % 25.1 Monocytes % 15.2 H Eosinophils % 4.7 H Basophils % 0.7 Nucleated RBC % 0 PT with INR INR Sodium 140 Potassium 3.1 L Chloride 108 H Carbon Dioxide 23 Anion Gap 9 BUN 9.7 Creatinine 0.4 L Est GFR (CKD-EPI)AfAm 113.21 Est GFR (CKD-EPI)NonAf 97.68 Random Glucose 89 Lactic Acid 0.8 Calcium 8.3 L Magnesium Total Bilirubin 0.4 AST 8 L ALT < 6 L Alkaline Phosphatase 140 H Total Protein 6.7 Albumin 2.8 L Blood Type Antibody Screen 11/02/19 11/02/19 11/02/19 16:30 16:30 22:30 WBC RBC Hgb Hct MCV MCH MCHC RDW Plt Count MPV Absolute Neuts (auto) Neutrophils % Lymphocytes % Monocytes % Eosinophils % Basophils % Nucleated RBC % PT with INR 14.10 H INR 1.19 H Sodium Potassium 3.4 L Chloride Carbon Dioxide Anion Gap BUN Creatinine Est GFR (CKD-EPI)AfAm Est GFR (CKD-EPI)NonAf Random Glucose Lactic Acid Calcium Magnesium 1.7 L Total Bilirubin AST ALT Alkaline Phosphatase Total Protein Albumin Blood Type O POSITIVE Antibody Screen Negative EKG: NSR, 74 bpm, QTC 455 ASSESSMENT/PLAN: 79 F PMH Parkinson's, Hypothyroidism, Crohn's disease, protein-calorie malnutrition, s/p spinal fusion now with a c-collar, unused R arm PICC line, p/w fever & discharge from abdominal wound. #Abdominal abscess & fistula -CTAP: 6.4 X 1.1 fluid & air structure, on basis of abscess. Subcentimeter pocket of air within pelvic peritoneal cavity; small abscess or fistula tract. -c/w vanc zosyn -culture of discharge from wound ordered. -surgery and ID consulted -loperamide 2 mg PO QID for diarrhea -f/u c Diff #Hypokalemia -likely 2/2 GI loss -replete with KCl. -monitor K+ as QTc is 455. F/u magnesium also. #Normocytic Anemia -f/u iron studies -f/u reticulocyte count #Lung nodules -CTAP: 0.7 cm opacities within superior segment R lower lobe, which could represent scarring or nonspecific nodules. -Chest CT no contrast ordered -f/u pulm c/s #Hypoalbuminemia -low BMI -likely 2/2 protein-calorie malnutrition that patient had come to the hospital with -f/u Supervisor [employer] consult #Hypothyroidism -c/w synthroid #DVT PPX -hold eliquis as pt may undergo surgery. -heparin 5000 sq TID, instead #FEN NS @ 75 cc/hr monitor lytes NPO after midnight as pt may undergo surgery in AM #DISPO maintain med surg Visit type - Medication Review Med list reviewed for High Risk Meds patients 65 and older: Yes - Emergency Visit Emergency Visit: Yes ED Registration Date: 11/02/19 Care time: The patient presented to the Emergency Department on the above date and was hospitalized for further evaluation of their emergent condition. - New Patient This patient is new to me today: Yes Date on this admission: 11/03/19 - Critical Care Critical Care patient: No ATTENDING PHYSICIAN STATEMENT I saw and evaluated the patient. I reviewed the resident's note and discussed the case with the resident. I agree with the resident's findings and plan as documented. SUBJECTIVE: OBJECTIVE: ASSESSMENT AND PLAN:
[2019-11-03 07:45] LABS: BASO % 0.6 % (0-2.0); EOS % 7.2 % (0-4.5); HEMATOCRIT 20.5 % (32.4-45.2); LYMPH % 20.8 % (8-40); MEAN PLT VOLUME 7.8 fl (7.5-11.1); MONO % 16.3 % (3.8-10.2); NEUT % 55.1 % (42.8-82.8); PLATELET COUNT 363 K/MM3 (134-434); RBC 2.18 M/mm3 (3.60-5.2); RDW 17.1 % (11.6-15.6); WHITE BLOOD COUNT 7.4 K/mm3 (4.0-10.0)
[2019-11-03 08:11] LABS: ALBUMIN 2.4 g/dl (3.4-5.0); BILIRUBIN,TOTAL 0.4 mg/dL (0.2-1); BLOOD UREA NITROGEN 5.1 mg/dL (7-18); CREATININE 0.4 mg/dL (0.55-1.3); MAGNESIUM 1.8 mg/dL (1.8-2.4); PHOSPHOROUS 3.6 mg/dL (2.5-4.9); POTASSIUM 4.1 mmol/L (3.5-5.1); TOT PROT 5.9 g/dl (6.4-8.2)
[2019-11-03 08:38] LABS: HEMOGLOBIN 6.8 GM/dL (10.7-15.3)
[2019-11-03] MEDS ORDERED: PIPERACILLIN/TAZOBACTAM 3.375 GM VIAL IVPB ONE ×2 (08:41→16:25)
[2019-11-03] MEDS ORDERED: DEXTROSE 5%-WATER - 50 ML IVPB ONE ×2 (08:42→16:25)
[2019-11-03] MEDS: PIPERACILLIN/TAZOB 3.375 GM 3.375 GM in DEXTROSE 5%-WATER - 50 ML IVPB SCH ×2 (09:03→17:23)
[2019-11-03] MEDS: LEVOTHYROXINE NA 25 MCG TABLET (FP) PO SCH (09:04)
[2019-11-03] MEDS: CARBIDOPA/LEVODOPA 25/100 TABLET (FP) PO SCH ×4 (09:04→21:28)
[2019-11-03] MEDS: MORPHINE SULFATE 2 MG/ML VIAL IVPUSH PRN ×4 (09:17→23:01)
[2019-11-03] MEDS: MICONAZOLE NITRATE 14 GM/TUBE TUBE TP SCH ×2 (09:21→21:35)
[2019-11-03] MEDS ORDERED: LOPERAMIDE HCL 2 MG CAPSULE PO PRN (10:00)
--- NOTE | 2019-11-03 10:00 | PN ---
Progress Note (short form) - Note Progress Note: PULMONARY CONSULTATION DICTATED 11/03/19 IMP FEVER/ABD PAIN / ABSCESS PULMONARY NODULE ?INFLAMMATORY HYPOTHYROID PARKINSONS ANEMIA H/O SPINAL FUSION PLAN O2 NEEDED ABX SURGERY EVALUATION CHEST CT MONITOR LYTES,H+H NORMAL TRANSFUSION THRESHOLD DR ELDER Problem List - Problems (1) Anemia Code(s): D64.9 - ANEMIA, UNSPECIFIED (2) Abdominal pain Code(s): R10.9 - UNSPECIFIED ABDOMINAL PAIN Qualifiers: Abdominal location: right lower quadrant Qualified Code(s): R10.31 - Right lower quadrant pain (3) Intra-abdominal abscess Code(s): K65.1 - PERITONEAL ABSCESS (4) Lung nodule Code(s): R91.1 - SOLITARY PULMONARY NODULE (5) Parkinson disease Code(s): G20 - PARKINSON'S DISEASE
--- NOTE | 2019-11-03 10:11 | PN ---
Physical Exam: SUBJECTIVE: Patient seen and examined OBJECTIVE: Vital Signs Period Temp Pulse Resp BP Sys/Cardenas Pulse Ox Last 24 Hr 98.1 F-98.9 F 71-88 14-18 104-153/50-61 95-100 GENERAL: The patient is awake, alert, and fully oriented, in no acute distress, cachetic HEAD: Normal with no signs of trauma. EYES: PERRL, extraocular movements intact, sclera anicteric, conjunctiva clear. No ptosis. ENT: Ears normal, nares patent, oropharynx clear without exudates, moist mucous membranes. NECK: Trachea midline, severely limited ROM LUNGS: Breath sounds equal, clear to auscultation bilaterally, no wheezes, no crackles, no accessory muscle use. HEART: Regular rate and rhythm, S1, S2 without murmur, rub or gallop. ABDOMEN: Soft, nontender, nondistended, normoactive bowel sounds, no guarding, no rebound, no hepatosplenomegaly, no masses, draining sinus EXTREMITIES: 2+ pulses, warm, well-perfused, no edema. PSYCH: Normal mood, normal affect. SKIN: Warm, dry, normal turgor, no rashes or lesions noted Laboratory Results - last 24 hr 11/02/19 11/02/19 11/02/19 16:30 16:30 16:30 WBC 9.3 RBC 2.31 L Hgb 7.1 L Hct 21.7 L MCV 93.7 MCH 30.7 MCHC 32.7 RDW 17.1 H Plt Count 399 MPV 7.6 Absolute Neuts (auto) 5.1 Neutrophils % 54.3 Lymphocytes % 25.1 Monocytes % 15.2 H Eosinophils % 4.7 H Basophils % 0.7 Nucleated RBC % 0 Retic Count PT with INR INR Sodium 140 Potassium 3.1 L Chloride 108 H Carbon Dioxide 23 Anion Gap 9 BUN 9.7 Creatinine 0.4 L Est GFR (CKD-EPI)AfAm 113.21 Est GFR (CKD-EPI)NonAf 97.68 Random Glucose 89 Lactic Acid 0.8 Calcium 8.3 L Phosphorus Magnesium Iron TIBC Iron Saturation Unsaturated IBC Ferritin Total Bilirubin 0.4 AST 8 L ALT < 6 L Alkaline Phosphatase 140 H Total Protein 6.7 Albumin 2.8 L Blood Type Antibody Screen Crossmatch 11/02/19 11/02/19 11/02/19 16:30 16:30 22:30 WBC RBC Hgb Hct MCV MCH MCHC RDW Plt Count MPV Absolute Neuts (auto) Neutrophils % Lymphocytes % Monocytes % Eosinophils % Basophils % Nucleated RBC % Retic Count PT with INR 14.10 H INR 1.19 H Sodium Potassium 3.4 L Chloride Carbon Dioxide Anion Gap BUN Creatinine Est GFR (CKD-EPI)AfAm Est GFR (CKD-EPI)NonAf Random Glucose Lactic Acid Calcium Phosphorus Magnesium 1.7 L Iron TIBC Iron Saturation Unsaturated IBC Ferritin Total Bilirubin AST ALT Alkaline Phosphatase Total Protein Albumin Blood Type O POSITIVE Antibody Screen Negative Crossmatch 11/03/19 11/03/19 11/03/19 06:20 06:20 06:20 WBC 7.4 RBC 2.18 L Hgb 6.8 L* Hct 20.5 L MCV 94.0 MCH 31.0 MCHC 33.0 RDW 17.1 H Plt Count 363 MPV 7.8 Absolute Neuts (auto) 4.1 Neutrophils % 55.1 Lymphocytes % 20.8 Monocytes % 16.3 H Eosinophils % 7.2 H Basophils % 0.6 Nucleated RBC % 0 Retic Count PT with INR INR Sodium 140 Potassium 4.1 Chloride 112 H Carbon Dioxide 23 Anion Gap 5 L BUN 5.1 L Creatinine 0.4 L Est GFR (CKD-EPI)AfAm 113.21 Est GFR (CKD-EPI)NonAf 97.68 Random Glucose 76 Lactic Acid Calcium 8.0 L Phosphorus 3.6 Magnesium 1.8 Iron 45 L TIBC 105 L Iron Saturation 42 H Unsaturated IBC 60 L Ferritin 882.5 H Total Bilirubin 0.4 AST 9 L ALT 7 L Alkaline Phosphatase 122 H Total Protein 5.9 L Albumin 2.4 L Blood Type O POSITIVE Antibody Screen Negative Crossmatch See Detail 11/03/19 06:20 WBC RBC Hgb Hct MCV MCH MCHC RDW Plt Count MPV Absolute Neuts (auto) Neutrophils % Lymphocytes % Monocytes % Eosinophils % Basophils % Nucleated RBC % Retic Count 5.52 H PT with INR INR Sodium Potassium Chloride Carbon Dioxide Anion Gap BUN Creatinine Est GFR (CKD-EPI)AfAm Est GFR (CKD-EPI)NonAf Random Glucose Lactic Acid Calcium Phosphorus Magnesium Iron TIBC Iron Saturation Unsaturated IBC Ferritin Total Bilirubin AST ALT Alkaline Phosphatase Total Protein Albumin Blood Type Antibody Screen Crossmatch Active Medications Generic Name Dose Route Start Last Admin Trade Name Freq PRN Reason Stop Dose Admin Acetaminophen 650 mg 11/03/19 01:36 Tylenol - PO Q6H PRN Fever Or Pain Carbidopa/Levodopa 1 each 11/03/19 10:00 11/03/19 09:04 Sinemet 25/100 - PO 1 each Q4HPO QUETA Administration Donepezil HCl 5 mg 11/03/19 22:00 Aricept - PO HS QUETA Heparin Sodium (Porcine) 5,000 unit 11/03/19 06:00 11/03/19 06:12 Heparin - SQ 5,000 unit TID QUETA Administration Sodium Chloride 1,000 mls @ 75 mls/hr 11/03/19 02:00 11/03/19 02:17 Normal Saline - IV 75 mls/hr ASDIR QUETA Administration Piperacillin Sod/Tazobactam 50 mls @ 100 mls/hr 11/04/19 10:00 Sod 3.375 gm/ Dextrose IVPB Q8H-IV QUETA Protocol Piperacillin Sod/Tazobactam 50 mls @ 100 mls/hr 11/03/19 10:00 11/03/19 09:03 Sod 3.375 gm/ Dextrose IVPB 11/04/19 02:29 100 mls/hr Q8H-IV QUETA Administration Levothyroxine Sodium 25 mcg 11/03/19 10:00 11/03/19 09:04 Synthroid - PO 25 mcg DAILY@0700 [facility] Administration Loperamide HCl 2 mg 11/03/19 10:00 Imodium - PO QID PRN DIARRHEA Miconazole Nitrate 1 applic 11/03/19 10:00 11/03/19 09:21 Monistat Topical Cream - TP 1 applic BID QUETA Administration Morphine Sulfate 2 mg 11/03/19 08:24 11/03/19 09:17 Morphine Sulfate IVPUSH 2 mg Q4H PRN Administration PAIN LEVEL 6-10 Vancomycin HCl 1,000 mg 11/04/19 21:00 Vancomycin (Pre-Docked) IVPB DAILY@2100 [facility] Protocol Vancomycin HCl 1,000 mg 11/03/19 21:00 Vancomycin (Pre-Docked) IVPB 11/03/19 21:01 DAILY@2100 [facility] ASSESSMENT/PLAN: 79 year old woman with a PMH of Parkinson' disease, Spinal fusion in C-collar (?on Eliquis), Protein-calorie malnutrition, Hypothyrodism, Suspected Crohn's disease, Multiple abdominal surgeries (colovaginal fistula? with complications, possible partial colectomy), h/o TPN, Unused Right PICC line (pt was on IV abx for abdominal abscess but was changed to linizolid PO recently) C- DIf positive. who presents with fevers and 2 days of abdominal wound discharge refusing any further surgical intervention, wants to be transferred to [place] where her medical/surgical team is. Spoke with RN over at [facility] reported new C-Dif testing positive, pt Abx were changed recently to PO linezolid per MD there for abdominal abscess, no records of positive blood cultures Will transfuse 2 pRBC IV fluids Clear Liquids D/C loperamide ID consult appreciated CT abdomen showing 6.4x1.1 cm fluid and air structure, compatible with abcess or chronic pancreatitis, small abscess/fistula noted in pelvis Will start empiric Zosyn, vanco plus oral vancomycin Obtain new C-Dif, contact isolation, blood cultures will reach out to transfer center in mean time Abdominal abscess and fistula C-Dif colitis Parkinson Spinal fusion Malnutrition Hypothyroidism Dementia DVT prophylaxis Visit type - Emergency Visit Emergency Visit: Yes ED Registration Date: 11/02/19 Care time: The patient presented to the Emergency Department on the above date and was hospitalized for further evaluation of their emergent condition. - New Patient This patient is new to me today: Yes Date on this admission: 11/03/19 - Critical Care Critical Care patient: No - Discharge Referral Referred to [facility] Med [facility].C[facility] No - Medication Review Med list reviewed for High Risk Meds patients 65 and older: Yes (reviewed)
--- NOTE | 2019-11-03 12:23 | PN ---
Progress Note (short form) - Note Progress Note: surgery 79f with presumed ibd, recent surgeries [address] [facility]with a presumed colorectal crohns surgeon, now with ct showing air fluid collection in abd and skin fistulas noted. if surgical management needed should be transferred to tertiary care center and managed by crohns surgeon. No indication for general surgery intervention at [facility].
--- NOTE | 2019-11-03 13:24 | EKG ---
Test Reason : Blood Pressure : / mmHG Vent. Rate : 074 BPM Atrial Rate : 074 BPM P-R Int : 144 ms QRS Dur : 074 ms QT Int : 410 ms P-R-T Axes : 057 045 049 degrees QTc Int : 455 ms NORMAL SINUS RHYTHM SEPTAL INFARCT , AGE UNDETERMINED ABNORMAL ECG NO PREVIOUS ECGS AVAILABLE Confirmed by Yancy Rosa ([id number]) on 11/03/2019 1:23:35 PM Referred By: Confirmed By:Yancy Rosa
--- NOTE | 2019-11-03 14:32 | CON.GI ---
Consult Consult Specialty:: Gastroenterology ( covering the [facility] GI Service) Referred by:: Dr Jd Estrada Reason for Consultation:: Common bile duct dilation. Abdominal abscess and fistula - History of Present Illness Chief Complaint: Fevers and fistula History of Present Illness: 79F resident at the [facility] home was transferred for evaluation of fevers that arose in conjunction with a right subumbilical cutaneous fistula. 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 She describes a 7 hours operation after which she had a protective ostomy. This was closed at [facility] in 12/14 when more colon was resected and after which she developed diarrhea, abdominal abscesses and a cutaneous fistula that required percutaneous drainage. She reports that she is well known to the colorectal surgery team at [facility] but tells me that Dr Hankins has since left and she cannot name the physician at [facility] most familiar with her case. She tells me that she has no PMD. She cannot recall when she last had a colonoscopy but did have them with Dr Perera in [facility] remotely and that she had polyps removed and diverticulosis was found. She denies ever having been told that she had Crohn's Disease or being treated with steroids or biologics. She was told that her GI problems were similar to those associated with Crohn's Disease. Her transfer record from [facility] does list Crohn's Disease of the small intestine among other diagnoses. She also informs me that she have an appendectomy at age 7 complicated by dehiscence. She also had a TAHBSO but denies surgery for SBO. She has diarrhea since her reversal surgery complicated by recent C diff colitis at [facility] for which she is taking Vanco. She is now toxin negative. Her CT scan reveals a mildy dilated common bile duct and pancreatic duct. Her LFTs are normal. It reveals a RLQ /pelvic abscess and a cutanous fistula tract. I spoke with her step son and his who tell me diverticular disease was the caused for her initial colovaginal fistula and deny being aware of Crohn's Disease. They did tell me that [facility] sent her to [facility] with TPN in hopes of making her a better candidate for surgery for a residual "stomach fistula". 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 - History Source History Provided By: Patient, Transfer Record Limitations to Obtaining History: Poor Historian - Past Medical History WEED BURNER: Yes: Dementia (takes Aricept), Parkinson's, Other (C spine surgery compli cated by ? osteomyelitis) Gastrointestinal: Yes: Other (Colovaginal and subsequent cutaneous fistulae and abdominal abscesses following a presumed partial colectomy with protective ileostomy 08/13 at [place] . Developed aabscesses and fistula following closure of the ileostomy. Transfer record lists Crohn's Disase of the small bowel ) Hepatobiliary: Yes: Other (dilated CBD and pancreatic duct) ...: No Infectious Disease: Yes: C-Diff, Other (? C spine osteomyelitis, recurring UTIs) Endocrine: Yes: Hypothyroidism - Past Surgical History Past Surgical History: Yes: Appendectomy (complicated by dehiscense), Colectomy (presumed 08/13 partial colectomy and proctecctive ileostomy 08/13 at [place]. Reversal in 12/14 leading to abscesses, fistula and need for perc drainage at [facility]), Colonoscopy, Hysterectomy (TAHBSO for fibroids and ovarian cysts), Ileosotomy (08/13 - 12/14), Joint Replacement (Right THR) Additional Surgical History: C spine fusion? Left hip ORIF - Alcohol/Substance Use Hx Alcohol Use: Yes (wine with dinner) History of Substance Use: reports: None - Smoking History Smoking history: Never smoked Have you smoked in the past 12 months: No - Social History Usual Living Arrangement: Retirement ADL: Support Services Occupation: retired " professional shah" Place of : [facility] History of Recent Travel: No Home Medications - Allergies Allergies/Adverse Reactions: Allergies Allergy/AdvReac Type Severity Reaction Status Date / Time azithromycin [From Zithromax] Allergy Verified 11/02/19 15:12 ciprofloxacin Allergy Verified 11/02/19 15:12 - Home Medications Home Medications: Ambulatory Orders Acetaminophen [Pain Reliever Adult] 100 mg PO TID 11/02/19 Apixaban [Eliquis -] 5 mg PO BID 11/02/19 Carbidopa/Levodopa [Carbidopa-Levodopa 25-100 Tab] 1 each PO Q4H 11/02/19 Diclofenac Sodium [Diclofono] 2.5 gm TP BID 11/02/19 Diphenoxylate HCl/Atropine [Lomotil Tablet] 1 each PO QID 11/02/19 Donepezil HCl [Aricept -] 5 mg PO DAILY 11/02/19 Levothyroxine [Synthroid -] 25 mcg PO DAILY 11/02/19 Lidocaine 5% Patch [Lidoderm Patch -] 1 patch TP DAILY 11/02/19 Linezolid 15 ml PO DAILY 11/02/19 Loperamide HCl [Imodium A-D] 2 mg PO QID PRN 11/02/19 Miconazole Nitrate [Anti-Fungal Powder] 71 gm TP BID 11/02/19 Morphine Sulfate 15 mg PO TID 11/02/19 Ondansetron HCl [Zofran] 4 mg PO Q6H 11/02/19 Oxycodone HCl [Roxicodone] 5 mg PO HS 11/02/19 Zinc Oxide 500 gm TP BID 11/02/19 Family Medical History Family Hx Cancer: Father ( 80 of prostate cancer), Brother ( of lung cancer) Family Hx Nuerologic Problems: Daughter (has epilepsy) Other Family History: mother lived to and of natural causes Physical Exam-GI Vital Signs: Vital Signs Temperature 98.8 F 11/03/19 08:28 Pulse Rate 79 11/03/19 08:28 Respiratory Rate 18 11/03/19 09:00 Blood Pressure 119/56 L 11/03/19 08:28 O2 Sat by Pulse Oximetry (%) 97 11/03/19 09:00 CBC,CMP WBC 7.4 K/mm3 (4.0-10.0) 11/03/19 06:20 RBC 2.18 M/mm3 (3.60-5.2) L 11/03/19 06:20 Hgb 6.8 GM/dL (10.7-15.3) L* 11/03/19 06:20 Hct 20.5 % (32.4-45.2) L 11/03/19 06:20 MCV 94.0 fl (80-96) 11/03/19 06:20 MCH 31.0 pg (25.7-33.7) 11/03/19 06:20 MCHC 33.0 g/dl (32.0-36.0) 11/03/19 06:20 RDW 17.1 % (11.6-15.6) H 11/03/19 06:20 Plt Count 363 K/MM3 (134-434) 11/03/19 06:20 MPV 7.8 fl (7.5-11.1) 11/03/19 06:20 Absolute Neuts (auto) 4.1 K/mm3 (1.5-8.0) 11/03/19 06:20 Neutrophils % 55.1 % (42.8-82.8) 11/03/19 06:20 Lymphocytes % 20.8 % (8-40) 11/03/19 06:20 Monocytes % 16.3 % (3.8-10.2) H 11/03/19 06:20 Eosinophils % 7.2 % (0-4.5) H 11/03/19 06:20 Basophils % 0.6 % (0-2.0) 11/03/19 06:20 Nucleated RBC % 0 % (0-0) 11/03/19 06:20 Retic Count 5.52 % (0.5-1.5) H 11/03/19 06:20 Sodium 140 mmol/L (136-145) 11/03/19 06:20 Potassium 4.1 mmol/L (3.5-5.1) 11/03/19 06:20 Chloride 112 mmol/L (98-107) H 11/03/19 06:20 Carbon Dioxide 23 mmol/L (21-32) 11/03/19 06:20 Anion Gap 5 MMOL/L (8-16) L 11/03/19 06:20 BUN 5.1 mg/dL (7-18) L 11/03/19 06:20 Creatinine 0.4 mg/dL (0.55-1.3) L 11/03/19 06:20 Est GFR (CKD-EPI)AfAm 113.21 11/03/19 06:20 Est GFR (CKD-EPI)NonAf 97.68 11/03/19 06:20 Random Glucose 76 mg/dL (74-106) 11/03/19 06:20 Lactic Acid 0.8 mmol/L (0.4-2.0) 11/02/19 16:30 Calcium 8.0 mg/dL (8.5-10.1) L 11/03/19 06:20 Phosphorus 3.6 mg/dL (2.5-4.9) 11/03/19 06:20 Magnesium 1.8 mg/dL (1.8-2.4) 11/03/19 06:20 Iron 45 ug/dL (50-175) L 11/03/19 06:20 TIBC 105 ug/dL (250-450) L 11/03/19 06:20 Iron Saturation 42 % (17.5-39) H 11/03/19 06:20 Unsaturated IBC 60 ug/dL (200-275) L 11/03/19 06:20 Ferritin 882.5 ng/ml (8-388) H 11/03/19 06:20 Total Bilirubin 0.4 mg/dL (0.2-1) 11/03/19 06:20 AST 9 U/L (15-37) L 11/03/19 06:20 ALT 7 U/L (13-61) L 11/03/19 06:20 Alkaline Phosphatase 122 U/L (45-117) H 11/03/19 06:20 Total Protein 5.9 g/dl (6.4-8.2) L 11/03/19 06:20 Albumin 2.4 g/dl (3.4-5.0) L 11/03/19 06:20 Current Medications Generic Name Dose Route Start Last Admin Trade Name Freq PRN Reason Stop Dose Admin Acetaminophen 650 mg 11/03/19 01:36 Tylenol - PO Q6H PRN Fever Or Pain Carbidopa/Levodopa 1 each 11/03/19 10:00 11/03/19 13:25 Sinemet 25/100 - PO 1 each Q4HPO QUETA Administration Donepezil HCl 5 mg 11/03/19 22:00 Aricept - PO HS QUETA Heparin Sodium (Porcine) 5,000 unit 11/03/19 06:00 11/03/19 06:12 Heparin - SQ 5,000 unit TID QUETA Administration Sodium Chloride 1,000 mls @ 75 mls/hr 11/03/19 02:00 11/03/19 02:17 Normal Saline - IV 75 mls/hr ASDIR QUETA Administration Piperacillin Sod/Tazobactam 50 mls @ 100 mls/hr 11/04/19 10:00 Sod 3.375 gm/ Dextrose IVPB Q8H-IV QUETA Protocol Piperacillin Sod/Tazobactam 50 mls @ 100 mls/hr 11/03/19 10:00 11/03/19 09:03 Sod 3.375 gm/ Dextrose IVPB 11/04/19 02:29 100 mls/hr Q8H-IV QUETA Administration Levothyroxine Sodium 25 mcg 11/03/19 10:00 11/03/19 09:04 Synthroid - PO 25 mcg DAILY@0700 [facility] Administration Miconazole Nitrate 1 applic 11/03/19 10:00 11/03/19 09:21 Monistat Topical Cream - TP 1 applic BID [facility] Administration Morphine Sulfate 2 mg 11/03/19 08:24 11/03/19 13:24 Morphine Sulfate IVPUSH 2 mg Q4H PRN Administration PAIN LEVEL 6-10 Vancomycin HCl 1,000 mg 11/04/19 21:00 Vancomycin (Pre-Docked) IVPB DAILY@2100 [facility] Protocol Vancomycin HCl 1,000 mg 11/03/19 21:00 Vancomycin (Pre-Docked) IVPB 11/03/19 21:01 DAILY@2100 [facility] Vancomycin HCl 125 mg 11/03/19 12:00 Vancomycin Oral Solution PO Q6HPO [facility] Constitutional: Yes: Anxious Eyes: Yes: Conjunctiva Clear HENT: Yes: Normocephalic Neck: Yes: Trachea Midline, Other (cervical collar) Cardiovascular: Yes: Regular Rate and Rhythm Respiratory: Yes: CTA Bilaterally Gastrointestinal Inspection: Yes: Scars (RLQ Ap incision, long vertical midline incision with small suprapubic fistula in the incision, right subumbilical ileostomy incision), Other (suprapubic cutaneous fistula) ...Auscultate: Yes: Hypoactive Bowel Sounds ...Palpate: Yes: Soft, Other (nontender) ...Percussion: Yes: Tympanitic ...Rectal Exam: Yes: Deferred (declined) Edema: No Neurological: Yes: Alert, Oriented (but slightly confused and forgetful) Labs: CBC, BMP 11/03/19 06:20 11/03/19 06:20 INR, PTT INR 1.19 (0.83-1.09) H 11/02/19 16:30 Laboratory Tests 11/02/19 11/02/19 11/03/19 16:30 16:30 06:20 WBC 7.4 Hgb 7.1 L 6.8 L* Plt Count 363 Retic Count Iron Unsaturated IBC Ferritin Alkaline Phosphatase 140 H Albumin 11/03/19 11/03/19 06:20 06:20 WBC Hgb Plt Count Retic Count 5.52 H Iron 45 L Unsaturated IBC 60 L Ferritin 882.5 H Alkaline Phosphatase 122 H Albumin 2.4 L Microbiology 11/03/19 11:50 Stool Clostridioides difficile Antigen - Final 11/03/19 11:50 Stool Clostridioides difficile Toxin Assay - Final Imaging - Results Cat Scan: Report Reviewed ( Final Report CT ABDOMEN & PELVIS CT WITH CONTR Show Printer-Friendly Version Patient Name: Ivana Black : 1940 ID: [id number] Study Date: 02-Nov-2019 19:52 [facility] Name: IVANA BLACK DEPARTMENT OF RADIOLOGY Phys: David Tsai RES EM : 1940 Age: 79 Sex: F [facility] Acct: [id number] Loc: [address] Exam Date: 11/02/19 Status: [facility] Unit Number: [id number] EXAM#: TYPE/EXAM: RESULT: [id number] CT/ABDOMEN PELVIS CT WITH CONTR Abdomen and pelvis CT with contrast Clinical information given: fistula Multiplanar imaging was performed utilizing intravenous as well as oral contrast. No prior imaging exam is available at this facility for direct comparison. There is no evidence of pneumoperitoneum, free intraperitoneal fluid. A surgical anastomosis is seen in the rectosigmoid region. An elliptical shaped approximately 6.4 x 1.1 cm fluid and air containing structure is seen within the right lateral pelvis which could be on the basis of an absce ss or possibly acute/chronic appendicitis. Evaluation of the pelvis is somewhat difficult on this study due to a paucity of intra-abdominal fat. Additional evaluation utilizing a delayed CT study to allow opacification of the colon may be helpful. A subcentimeter pocket of air is seen within the pelvic peritoneal cavity ventrally (transaxial image 103) adjacent to the pelvic wall. This focus could be on the basis of a small abscess and/or fistula tract. At the same level there appears to be a small pocket of air/gas within the subcutaneous fat. Evaluation of the lower third of the pelvis is also limited due to extensive metallic artifact arising from a right hip replacement as well as left hip operative internal fixation. Several dilated contrast opacified small bowel loops are seen within the lower pelvis centrally with a 4.3 cm maximum diameter which could be on the basis of partial obstruction or localized ileus. The common bile duct is dilated with a 1 cm diameter. There appears to be smooth tapering to the level of the ampulla. No gross mass lesion is identified on this study. Mild intrahepatic biliary tract dilatation is also noted. Within the pancreatic body and head note is made of mild nonspecific dilatation of the main duct with a 3.5 mm diameter. No gross mass lesion is identified on this exam. MRI/MRCP evaluation is suggested. The liver, spleen, gallbladder, adrenal glands and kidneys demonstrate no discrete pathology. There is no aortic aneurysm. No obvious lymphadenopathy is identified. Absent versus atrophic uterus. Several small 0.7 cm opacities are seen within the partially imaged superior segment of the right lower lobe medially which could represent postinflammatory scarring and probably less likely nonspecific nodules. Correlation with 3 month follow-up CT is suggested. Impression: As noted above. Reported By: Zachary Espinosa MD 11/02/192045 David Tsai Technologist: Justin Verduzco Transcribed Date/Time: 11/02/192045 [employer] Et[employer] Developer: Zachary Espinosa Printed Date/Time: By: Signed by: Zachary Espinosa Signed on: 02-Nov-2019 20:48) Problem List - Problems (1) Cutaneous fistula Code(s): L98.8 - OTH DISRD OF THE SKIN AND SUBCUTANEOUS TISSUE (2) History of Clostridium difficile colitis Code(s): Z86.19 - PERSONAL HISTORY OF OTHER INFECTIOUS AND PARASITIC DISEASES (3) Diverticulitis large intestine Code(s): K57.32 - DVTRCLI OF LG INT W/O PERFORATION OR ABSCESS W/O BLEEDING (4) Colovaginal fistula Code(s): N82.4 - OTHER FEMALE INTESTINAL-GENITAL TRACT FISTULAE (5) History of appendectomy Code(s): Z90.49 - ACQUIRED ABSENCE OF OTHER SPECIFIED PARTS OF DIGESTIVE TRACT (6) History of partial colectomy Code(s): Z90.49 - ACQUIRED ABSENCE OF OTHER SPECIFIED PARTS OF DIGESTIVE TRACT (7) Dilation of common bile duct Code(s): K83.8 - OTHER SPECIFIED DISEASES OF BILIARY TRACT (8) Dilated pancreatic duct Code(s): K86.89 - OTHER SPECIFIED DISEASES OF PANCREAS (9) Anemia Code(s): D64.9 - ANEMIA, UNSPECIFIED (10) Intra-abdominal abscess Code(s): K65.1 - PERITONEAL ABSCESS Assessment/Plan Impression: - Ivana's fever reflects a recurrent intrabdominal abscess that may be the origin of her cutaneous fistula. She was being prepared for surgery for a known existing fistula according to the family. Her abscess needs to be drained but she tells me that she does not want that done here or at [place] and wants it to be alexander at [facility]. I asked her family to try to get us the name of her colorectal physican at [facility] to facilitate such a transfer - Her dilated pancreatic duct may reflect an IPMN but given the dilated CBD a tumor the head of the pancreas need to be excluded. She would best be served by an EUS. This is not available here but can be pursued at [facility] - Anemia. Refused rectal exam. Will check for occult blood and I suspect this will reflect chronic GI blood loss - C diff colitis Plan: -- Continue antibiotics -- Pursue transfer to [facility] but if this is delayed then a percutaneous drain may need to be placed her by IR here -- Complete course of Vanco for C diff -- EUS to be pursued at [facility] -- EGD and colonoscopy for anemia TBD at [facility]. Does not want anything done here
--- NOTE | 2019-11-03 15:09 | DS ---
Physical Exam: SUBJECTIVE: Patient seen and examined OBJECTIVE: Vital Signs Period Temp Pulse Resp BP Sys/Cardenas Pulse Ox Last 24 Hr 98.1 F-98.9 F 71-88 14-18 104-153/50-61 95-100 PHYSICAL EXAM GENERAL: The patient is awake, alert, and fully oriented, in no acute distress, cachetic HEAD: Normal with no signs of trauma. EYES: PERRL, extraocular movements intact, sclera anicteric, conjunctiva clear. No ptosis. ENT: Ears normal, nares patent, oropharynx clear without exudates, moist mucous membranes. NECK: Trachea midline, severely limited ROM LUNGS: Breath sounds equal, clear to auscultation bilaterally, no wheezes, no crackles, no accessory muscle use. HEART: Regular rate and rhythm, S1, S2 without murmur, rub or gallop. ABDOMEN: Soft, nontender, nondistended, normoactive bowel sounds, no guarding, no rebound, no hepatosplenomegaly, no masses, has a draining sinus EXTREMITIES: 2+ pulses, warm, well-perfused, no edema. PiCC line placed PSYCH: Normal mood, normal affect. SKIN: Warm, dry, normal turgor, no rashes or lesions noted LABS Laboratory Results - last 24 hr 11/02/19 11/02/19 11/02/19 16:30 16:30 16:30 WBC 9.3 RBC 2.31 L Hgb 7.1 L Hct 21.7 L MCV 93.7 MCH 30.7 MCHC 32.7 RDW 17.1 H Plt Count 399 MPV 7.6 Absolute Neuts (auto) 5.1 Neutrophils % 54.3 Lymphocytes % 25.1 Monocytes % 15.2 H Eosinophils % 4.7 H Basophils % 0.7 Nucleated RBC % 0 Retic Count PT with INR INR Sodium 140 Potassium 3.1 L Chloride 108 H Carbon Dioxide 23 Anion Gap 9 BUN 9.7 Creatinine 0.4 L Est GFR (CKD-EPI)AfAm 113.21 Est GFR (CKD-EPI)NonAf 97.68 Random Glucose 89 Lactic Acid 0.8 Calcium 8.3 L Phosphorus Magnesium Iron TIBC Iron Saturation Unsaturated IBC Ferritin Total Bilirubin 0.4 AST 8 L ALT < 6 L Alkaline Phosphatase 140 H Total Protein 6.7 Albumin 2.8 L Blood Type Antibody Screen Crossmatch 11/02/19 11/02/1920 16:30 16:30 22:30 WBC RBC Hgb Hct MCV MCH MCHC RDW Plt Count MPV Absolute Neuts (auto) Neutrophils % Lymphocytes % Monocytes % Eosinophils % Basophils % Nucleated RBC % Retic Count PT with INR 14.10 H INR 1.19 H Sodium Potassium 3.4 L Chloride Carbon Dioxide Anion Gap BUN Creatinine Est GFR (CKD-EPI)AfAm Est GFR (CKD-EPI)NonAf Random Glucose Lactic Acid Calcium Phosphorus Magnesium 1.7 L Iron TIBC Iron Saturation Unsaturated IBC Ferritin Total Bilirubin AST ALT Alkaline Phosphatase Total Protein Albumin Blood Type O POSITIVE Antibody Screen Negative Crossmatch 11/03/19 11/03/19 11/03/19 06:20 06:20 06:20 WBC 7.4 RBC 2.18 L Hgb 6.8 L* Hct 20.5 L MCV 94.0 MCH 31.0 MCHC 33.0 RDW 17.1 H Plt Count 363 MPV 7.8 Absolute Neuts (auto) 4.1 Neutrophils % 55.1 Lymphocytes % 20.8 Monocytes % 16.3 H Eosinophils % 7.2 H Basophils % 0.6 Nucleated RBC % 0 Retic Count PT with INR INR Sodium 140 Potassium 4.1 Chloride 112 H Carbon Dioxide 23 Anion Gap 5 L BUN 5.1 L Creatinine 0.4 L Est GFR (CKD-EPI)AfAm 113.21 Est GFR (CKD-EPI)NonAf 97.68 Random Glucose 76 Lactic Acid Calcium 8.0 L Phosphorus 3.6 Magnesium 1.8 Iron 45 L TIBC 105 L Iron Saturation 42 H Unsaturated IBC 60 L Ferritin 882.5 H Total Bilirubin 0.4 AST 9 L ALT 7 L Alkaline Phosphatase 122 H Total Protein 5.9 L Albumin 2.4 L Blood Type O POSITIVE Antibody Screen Negative Crossmatch See Detail 11/03/19 06:20 WBC RBC Hgb Hct MCV MCH MCHC RDW Plt Count MPV Absolute Neuts (auto) Neutrophils % Lymphocytes % Monocytes % Eosinophils % Basophils % Nucleated RBC % Retic Count 5.52 H PT with INR INR Sodium Potassium Chloride Carbon Dioxide Anion Gap BUN Creatinine Est GFR (CKD-EPI)AfAm Est GFR (CKD-EPI)NonAf Random Glucose Lactic Acid Calcium Phosphorus Magnesium Iron TIBC Iron Saturation Unsaturated IBC Ferritin Total Bilirubin AST ALT Alkaline Phosphatase Total Protein Albumin Blood Type Antibody Screen Crossmatch Active Medications Acetaminophen (Tylenol -) 650 mg PO Q6H PRN PRN Reason: Fever Or Pain Carbidopa/Levodopa (Sinemet 25/100 -) 1 each PO Q4HPO [facility] Last Admin: 11/03/19 13:25 Dose: 1 each Documented by: Donepezil HCl (Aricept -) 5 mg PO HS [facility] Heparin Sodium (Porcine) (Heparin -) 5,000 unit SQ TID [facility] Last Admin: 11/03/19 06:12 Dose: 5,000 unit Documented by: Sodium Chloride (Normal Saline -) 1,000 mls @ 75 mls/hr IV ASDIR [facility] Last Admin: 11/03/19 02:17 Dose: 75 mls/hr Documented by: Piperacillin Sod/Tazobactam (Sod 3.375 gm/ Dextrose) 50 mls @ 100 mls/hr IVPB Q8H-IV [facility]; Protocol Piperacillin Sod/Tazobactam (Sod 3.375 gm/ Dextrose) 50 mls @ 100 mls/hr IVPB Q8H-IV [facility] Stop: 11/04/19 02:29 Last Admin: 11/03/19 09:03 Dose: 100 mls/hr Documented by: Levothyroxine Sodium (Synthroid -) 25 mcg PO DAILY@0700 [facility] Last Admin: 11/03/19 09:04 Dose: 25 mcg Documented by: Miconazole Nitrate (Monistat Topical Cream -) 1 applic TP BID [facility] Last Admin: 11/03/19 09:21 Dose: 1 applic Documented by: Morphine Sulfate (Morphine Sulfate) 2 mg IVPUSH Q4H PRN PRN Reason: PAIN LEVEL 6-10 Last Admin: 11/03/19 13:24 Dose: 2 mg Documented by: Vancomycin HCl (Vancomycin (Pre-Docked)) 1,000 mg IVPB DAILY@2100 [facility]; Protocol Vancomycin HCl (Vancomycin (Pre-Docked)) 1,000 mg IVPB DAILY@2100 [facility] Stop: 11/03/19 21:01 Vancomycin HCl (Vancomycin Oral Solution) 125 mg PO Q6HPO [facility] HOSPITAL COURSE: 79 year old woman with a PMH of Parkinson' disease, Rt prosthetic hip, lt hip internal fixation, Spinal fusion in C-collar, Protein-calorie malnutrition, Hypothyrodism, possible Crohn's disease, Multiple abdominal surgeries (colovaginal fistula with complications, possible partial colectomy), h/o TPN, Unused Right PICC line (pt was on IV abx for abdominal abscess but was changed to linizolid PO recently) C- DIf positive. who presents with fevers and 2 days of abdominal wound discharge. She was refusing any further surgical intervention, wants to be transferred to [place] where her medical/surgical team is. Flooring Installer Spoke with RN over at [place] reported new C-Dif testing positive, pt Abx were changed recently to PO linezolid per MD there for abdominal abscess, no records of positive blood cultures or her antibiotic selection reasoning. CT abdomen showing 6.4x1.1 cm fluid and air structure, compatible with abcess or chronic pancreatitis, small abscess/fistula noted in pelvis. Pt Hg was 6.8 and she was transfused 2 pRBC. C-Dif was sent, loperamide was discontinued and Blood cultures were drawn. pt started empiric Zosyn, vanco plus oral vancomycin (ID consult appreciated) Date of Admission:11/02/19 Date of Discharge: 11/03/19 Minutes to complete discharge: 35 Discharge Summary Problems reviewed: Yes Reason For Visit: FISTULA,INTRA ABD ABSCESS,HYPOKALEMIA Current Active Problems Abdominal hernia (Acute) Abdominal pain (Acute) Anemia (Acute) Fistula (Acute) Hypokalemia (Acute) Intra-abdominal abscess (Acute) Lung nodule (Acute) Parkinson disease (Acute) Condition: Stable - Instructions Referrals: ON STAFF,NOT [Primary Care Provider] - - Home Medications Comprehensive Discharge Medication List: Ambulatory Orders Acetaminophen [Pain Reliever Adult] 100 mg PO TID 11/02/19 Apixaban [Eliquis -] 5 mg PO BID 11/02/19 Carbidopa/Levodopa [Carbidopa-Levodopa 25-100 Tab] 1 each PO Q4H 11/02/19 Diclofenac Sodium [Diclofono] 2.5 gm TP BID 11/02/19 Diphenoxylate HCl/Atropine [Lomotil Tablet] 1 each PO QID 11/02/19 Donepezil HCl [Aricept -] 5 mg PO DAILY 11/02/19 Levothyroxine [Synthroid -] 25 mcg PO DAILY 11/02/19 Lidocaine 5% Patch [Lidoderm Patch -] 1 patch TP DAILY 11/02/19 Linezolid 15 ml PO DAILY 11/02/19 Loperamide HCl [Imodium A-D] 2 mg PO QID PRN 11/02/19 Miconazole Nitrate [Anti-Fungal Powder] 71 gm TP BID 11/02/19 Morphine Sulfate 15 mg PO TID 11/02/19 Ondansetron HCl [Zofran] 4 mg PO Q6H 11/02/19 Oxycodone HCl [Roxicodone] 5 mg PO HS 11/02/19 Zinc Oxide 500 gm TP BID 11/02/19 This patient is new to me today: Yes Date on this admission: 11/03/19 Emergency Visit: Yes ED Registration Date: 11/02/19 Care time: The patient presented to the Emergency Department on the above date and was hospitalized for further evaluation of their emergent condition. Critical Care patient: No - Discharge Referral Referred to [facility] No
--- NOTE | 2019-11-03 16:23 | CON.ID ---
Consult Consult Specialty:: infectious disease Referred by:: hospitalist Reason for Consultation:: antibiotic for abscess - History of Present Illness Chief Complaint: abdominal pain History of Present Illness: 79F rNHR for last one month transferred to ED for abdominal pain- she has a known cutaneous fistula. She has referred me to the chart s she has told the hisotry to many physicians denies fevers or cough reports weight loss and chronic diarrhea for last several weeks reports she was on TPNinthe past . She describes a 7 hours operation after which she had a protective ostomy. This was closed at [facility] in 12/14 when more colon was resected and after which she developed diarrhea, abdominal abscesses and a cutaneous fistula that required percutaneous drainage. She cannot recall when she last had a colonoscopy but did have them with Dr Perera in [facility] remotely and that she had polyps removed and diverticulosis was found. ectomy at age 7 complicated by dehiscence. She also had a TAHBSO but denies surgery for SBO. She has diarrhea since her reversal surgery. the hospitalist called the [facility]- she has just completed a course oflinezolid and doxycycline- not sure why, stool was sent for cdiff at the [facility] and is positive per verbal report from [facility] Her CT scan reveals a mildy dilated common bile duct and pancreatic duct. l. It reveals a RLQ /pelvic abscess and a cutanous fistula tract. she is currently receiving a blood trnasfusion and requestingtransfer to [facility] which is being arranged denies prior history of cdiff - History Source History Provided By: Patient, Medical Record - Past Medical History [employer] TE[employer]CHIT[employer]: Yes: Dementia (takes Aricept), Parkinson's, Other (C spine surgery complicated by ? osteomyelitis) Gastrointestinal: Yes: Other (Colovaginal and subsequent cutaneous fistulae and abdominal abscesses following a presumed partial colectomy with protective ileostomy 08/13 at [facility] . Developed aabscesses and fistula following closure of the ileostomy. Transfer record lists Crohn's Disase of the small bowel ) Hepatobiliary: Yes: Other (dilated CBD and pancreatic duct) ...: No Infectious Disease: Yes: C-Diff, Other (? C spine osteomyelitis, recurring UTIs) Endocrine: Yes: Hypothyroidism - Past Surgical History Past Surgical History: Yes: Appendectomy (complicated by dehiscense), Colectomy (presumed 08/13 partial colectomy and proctecctive ileostomy 08/13 at [facility]. Reversal in 12/14 leading to abscesses, fistula and need for perc drainage at [facility]), Colonoscopy, Hysterectomy (TAHBSO for fibroids and ovarian cysts), Ileosotomy (08/13 - 12/14), Joint Replacement (Right THR) Additional Surgical History: C spine surgery. Left hip ORIF - Alcohol/Substance Use Hx Alcohol Use: Yes (wine with dinner) History of Substance Use: reports: None - Smoking History Smoking history: Never smoked Have you smoked in the past 12 months: No - Social History Usual Living Arrangement: Long-Term ADL: Support Services Occupation: retired " professional shah" History of Recent Travel: No Home Medications - Allergies Allergies/Adverse Reactions: Allergies Allergy/AdvReac Type Severity Reaction Status Date / Time azithromycin [From Zithromax] Allergy Verified 11/02/19 15:12 ciprofloxacin Allergy Verified 11/02/19 15:12 - Home Medications Home Medications: Ambulatory Orders Carbidopa/Levodopa [Carbidopa-Levodopa 25-100 Tab] 1 each PO Q4H 11/02/19 Donepezil HCl [Aricept -] 5 mg PO DAILY 11/02/19 Levothyroxine [Synthroid -] 25 mcg PO DAILY 11/02/19 Ondansetron HCl [Zofran] 4 mg PO Q6H 11/02/19 Zinc Oxide 500 gm TP BID 11/02/19 Acetaminophen [Tylenol .Regular Strength -] 650 mg PO Q6H PRN tablet 11/03/19 Heparin - 5,000 unit SQ TID vial 11/03/19 Morphine Sulfate 2 mg IVPUSH Q4H PRN vial 11/03/19 Nystatin Powder [Nystop Powder -] 1 applic TP DAILY applic 11/03/19 Piperacillin/Tazob 3.375 gm [Zosyn -] 3.375 gm IVPB Q8H-IV vial 11/03/19 Sodium Chloride [Normal Saline -] 75 ml IV [facility]IR infus.bag 11/03/19 Vancomycin 1 Gram (Pre-Docked) [Vancomycin (Pre-Docked)] 1,000 mg IVPB DAILY@2100 bag 11/03/19 Vancomycin Oral Solution 125 mg PO Q6HPO ml 11/03/19 Family Medical History Family History: Unable to Obtain Review of Systems - Review of Systems Constitutional: reports: Unintentional Wgt. Loss, Weakness Eyes: reports: No Symptoms HENT: reports: No Symptoms Neck: reports: No Symptoms Cardiovascular: reports: No Symptoms Respiratory: reports: No Symptoms Gastrointestinal: reports: Abdominal Pain, Diarrhea Genitourinary: reports: No Symptoms Physical Exam Vital Signs: Vital Signs Temperature 98.8 F 11/03/19 08:28 Pulse Rate 79 11/03/19 08:28 Respiratory Rate 18 11/03/19 09:00 Blood Pressure 119/56 L 11/03/19 08:28 O2 Sat by Pulse Oximetry (%) 97 11/03/19 09:00 Constitutional: Yes: Thin Eyes: Yes: Conjunctiva Clear, PERRL HENT: Yes: Atraumatic Neck: Yes: Other (wearing a cervical collar) Cardiovascular: Yes: Regular Rate and Rhythm Respiratory: Yes: CTA Bilaterally, Diminished Gastrointestinal: Yes: Normal Bowel Sounds, Soft, Other (fistula no drainage or erythema noted) ...Rectal Exam: Yes: Deferred Edema: No Neurological: Yes: Alert, Oriented Labs: CBC, BMP 11/03/19 06:20 11/03/19 06:20 Imaging - Results Cat Scan: Report Reviewed Problem List - Problems (1) Intra-abdominal abscess Code(s): K65.1 - PERITONEAL ABSCESS (2) History of Clostridium difficile colitis Code(s): Z86.19 - PERSONAL HISTORY OF OTHER INFECTIOUS AND PARASITIC DISEASES (3) Anemia Code(s): D64.9 - ANEMIA, UNSPECIFIED Assessment/Plan would agree with vanco and zosyn- adjust vancomycin for her weight. po vancomycin for cdiff-please try to get report from [place] no culture data available from the [facility]- not clear why she was on the linezolid and doxycycline for transfer d/w hospitalist
[2019-11-03] MEDS: FUROSEMIDE 40 MG/4 ML INJECTABLE VIAL IVPUSH ONE ×2 (16:45→16:49)
[2019-11-03] MEDS: VANCOMYCIN 250 MG/5 ML ORAL SOLUTION PO SCH ×2 (17:24→17:31)
[2019-11-03] MEDS: NYSTATIN POWDER 100,000 UNITS/GM - 15 GM TOPICAL POWDER TP SCH (17:31)
[2019-11-03] MEDS ORDERED: VANCOMYCIN 500 MG in DEXTROSE 5%-WATER - 100 ML IVPB SCH (20:00)
[2019-11-03] MEDS ORDERED: VANCOMYCIN 1 GM in D5W (PRE-DOCKED) 1,000 MG/250 ML IVPB SCH (21:00)
[2019-11-03] MEDS ORDERED: DONEPEZIL HCL 5 MG TABLET (FP) PO SCH (22:00)
[2019-11-04] MEDS: VANCOMYCIN 250 MG/5 ML ORAL SOLUTION PO SCH ×3 (00:53→11:27)
[2019-11-04] MEDS ORDERED: PIPERACILLIN/TAZOBACTAM 3.375 GM VIAL IVPB ONE ×2 (01:04→08:05)
[2019-11-04] MEDS ORDERED: DEXTROSE 5%-WATER - 50 ML IVPB ONE ×2 (01:04→08:05)
[2019-11-04] MEDS: PIPERACILLIN/TAZOB 3.375 GM 3.375 GM in DEXTROSE 5%-WATER - 50 ML IVPB SCH (01:07)
[2019-11-04] MEDS: CARBIDOPA/LEVODOPA 25/100 TABLET (FP) PO SCH ×4 (01:10→13:49)
[2019-11-04] MEDS: SODIUM CHLORIDE 1,000 ML IV SCH ×2 (02:58→13:50)
[2019-11-04] MEDS: MORPHINE SULFATE 2 MG/ML VIAL IVPUSH PRN ×3 (03:13→15:19)
[2019-11-04] MEDS: HEPARIN NA (PORCINE) 5,000 UNITS/ML 1ML VIAL SQ SCH ×2 (05:23→13:50)
[2019-11-04] MEDS: LEVOTHYROXINE NA 25 MCG TABLET (FP) PO SCH (06:05)
--- NOTE | 2019-11-04 07:15 | PN ---
Progress Note, Physician History of Present Illness: pulmonary alert,-sob,+ abd discomfort. pt refuses chest ct - Current Medication List Current Medications: Active Medications Acetaminophen (Tylenol -) 650 mg PO Q6H PRN PRN Reason: Fever Or Pain Carbidopa/Levodopa (Sinemet 25/100 -) 1 each PO Q4HPO [facility] Last Admin: 11/04/19 05:23 Dose: 1 each Documented by: Donepezil HCl (Aricept -) 5 mg PO HS [facility] Last Admin: 11/03/19 21:28 Dose: 5 mg Documented by: Heparin Sodium (Porcine) (Heparin -) 5,000 unit SQ TID [facility] Last Admin: 11/04/19 05:23 Dose: Not Given Documented by: Sodium Chloride (Normal Saline -) 1,000 mls @ 75 mls/hr IV ASDIR [facility] Last Admin: 11/04/19 02:58 Dose: Not Given Documented by: Piperacillin Sod/Tazobactam (Sod 3.375 gm/ Dextrose) 50 mls @ 100 mls/hr IVPB Q8H-IV [facility]; Protocol Vancomycin HCl 500 mg/ (Dextrose) 100 mls @ 100 mls/hr IVPB Q24H [facility]; Protocol Last Admin: 11/03/19 21:40 Dose: 100 mls/hr Documented by: Levothyroxine Sodium (Synthroid -) 25 mcg PO DAILY@0700 [facility] Last Admin: 11/04/19 06:05 Dose: Not Given Documented by: Miconazole Nitrate (Monistat Topical Cream -) 1 applic TP BID [facility] Last Admin: 11/03/19 21:35 Dose: 1 applic Documented by: Morphine Sulfate (Morphine Sulfate) 2 mg IVPUSH Q4H PRN PRN Reason: PAIN LEVEL 6-10 Last Admin: 11/04/19 03:13 Dose: 2 mg Documented by: Nystatin (Nystop Powder -) 1 applic TP DAILY [facility] Last Admin: 11/03/19 17:31 Dose: 1 applic Documented by: Vancomycin HCl (Vancomycin Oral Solution) 125 mg PO Q6HPO [facility] Last Admin: 11/04/19 05:23 Dose: 125 mg Documented by: - Objective Vital Signs: Vital Signs Temperature 98.0 F 11/04/19 06:00 Pulse Rate 76 11/04/19 06:00 Respiratory Rate 18 11/04/19 06:00 Blood Pressure 130/70 11/04/19 06:00 O2 Sat by Pulse Oximetry (%) 98 11/04/19 06:00 Constitutional: Yes: Calm, Thin Eyes: Yes: WNL HENT: Yes: WNL Neck: Yes: Supple (neck brace) Cardiovascular: Yes: Regular Rate and Rhythm, S1, S2 Respiratory: Yes: CTA Bilaterally Gastrointestinal: Yes: Soft, Tenderness Extremities: Yes: WNL Edema: No Labs: CBC, BMP 11/03/19 06:20 Problem List - Problems (1) Anemia Code(s): D64.9 - ANEMIA, UNSPECIFIED (2) Abdominal pain Code(s): R10.9 - UNSPECIFIED ABDOMINAL PAIN Qualifiers: Abdominal location: right lower quadrant Qualified Code(s): R10.31 - Right lower quadrant pain (3) Intra-abdominal abscess Code(s): K65.1 - PERITONEAL ABSCESS (4) Lung nodule Code(s): R91.1 - SOLITARY PULMONARY NODULE (5) Parkinson disease Code(s): G20 - PARKINSON'S DISEASE Assessment/Plan IMP FEVER/ABD PAIN / ABSCESS PULMONARY NODULE ?INFLAMMATORY HYPOTHYROID PARKINSONS ANEMIA H/O SPINAL FUSION PLAN O2 NEEDED ABX PER ID SURGERY EVALUATION CHEST CT PT REFUSES MONITOR LYTES,H+H NORMAL TRANSFUSION THRESHOLD DR ELDER Problem List - Problems (1) Anemia Code(s): D64.9 - ANEMIA, UNSPECIFIED (2) Abdominal pain Code(s): R10.9 - UNSPECIFIED ABDOMINAL PAIN Qualifiers: Abdominal location: right lower quadrant Qualified Code(s): R10.31 - Right lower quadrant pain (3) Intra-abdominal abscess Code(s): K65.1 - PERITONEAL ABSCESS (4) Lung nodule Code(s): R91.1 - SOLITARY PULMONARY NODULE (5) Parkinson disease
[2019-11-04 08:28] VITALS: BP 138/63; PULSE 66
[2019-11-04] MEDS: NYSTATIN POWDER 100,000 UNITS/GM - 15 GM TOPICAL POWDER TP SCH (09:06)
[2019-11-04] MEDS: MICONAZOLE NITRATE 14 GM/TUBE TUBE TP SCH (09:07)
[2019-11-04] MEDS ORDERED: PIPERACILLIN/TAZOB 3.375 GM 3.375 GM in DEXTROSE 5%-WATER - 50 ML IVPB SCH (10:00)
[2019-11-04 10:31] LABS: BASO % 0.6 % (0-2.0); EOS % 14.9 % (0-4.5); HEMATOCRIT 28.6 % (32.4-45.2); HEMOGLOBIN 9.8 GM/dL (10.7-15.3); LYMPH % 19.5 % (8-40); MCH 30.1 pg (25.7-33.7); MCHC 34.1 g/dl (32.0-36.0); MEAN CELL VOLUME 88.1 fl (80-96); MEAN PLT VOLUME 7.9 fl (7.5-11.1); MONO % 10.8 % (3.8-10.2); NEUT % 54.2 % (42.8-82.8); PLATELET COUNT 379 K/MM3 (134-434); RBC 3.25 M/mm3 (3.60-5.2); RDW 17.9 % (11.6-15.6)
[2019-11-04 11:04] LABS: ALBUMIN 2.5 g/dl (3.4-5.0); ALK PHOS 135 U/L (45-117); ANION GAP 6 MMOL/L (8-16); BILIRUBIN,TOTAL 0.5 mg/dL (0.2-1); BLOOD UREA NITROGEN 5.5 mg/dL (7-18); CHLORIDE 112 mmol/L (98-107); CO2 22 mmol/L (21-32); CREATININE 0.4 mg/dL (0.55-1.3); GLUCOSE,RANDOM 102 mg/dL (74-106); POTASSIUM 3.5 mmol/L (3.5-5.1); SGOT/AST 10 U/L (15-37); SODIUM 141 mmol/L (136-145); TOT PROT 6.1 g/dl (6.4-8.2)
[2019-11-04 11:16] LABS: SGPT/ALT < 6 U/L (13-61)
--- NOTE | 2019-11-04 14:27 | PN ---
Progress Note (short form) - Note Progress Note: still with abdominal discomfort has a bm everytime she eats repeat cdiff is pending Vital Signs Period Temp Pulse Resp BP Sys/Cardenas Pulse Ox Last 24 Hr 98 F-98.2 F 66-82 18-19 118-138/55-70 97-100 cor-rrr lungs clear abd soft,mild RLQ discomfort to palpation +dressing intact ext no edema CBC, BMP 11/04/19 09:32 11/04/19 09:32 Microbiology 11/03/19 13:10 Blood - Picc Line Blood Culture - Preliminary NO GROWTH OBTAINED AFTER 24 HOURS, INCUBATION TO CONTINUE FOR 4 DAYS. 11/03/19 13:10 Blood - Picc Line Blood Culture - Preliminary NO GROWTH OBTAINED AFTER 24 HOURS, INCUBATION TO CONTINUE FOR 4 DAYS. 11/03/19 03:30 Abdomen Gram Stain - Final 11/03/19 03:30 Abdomen Wound Culture - Preliminary Lactose Fermenting Neg Bacilli Group D Strep Or Entero Coccus 11/03/19 03:09 Urine - Urine Clean Catch Urine Culture - Final Yeast Like Organism 11/03/19 11:50 Stool Clostridioides difficile Antigen - Final 11/03/19 11:50 Stool Clostridioides difficile Toxin Assay - Final a/p repeat cdiff is pending plese try to get report from [place] faxed to the hospital intra-abdominal abscess- continue vanco/zosyn for transfer when bed available at [facility] Problem List - Problems (1) Intra-abdominal abscess Code(s): K65.1 - PERITONEAL ABSCESS (2) History of Clostridium difficile colitis Code(s): Z86.19 - PERSONAL HISTORY OF OTHER INFECTIOUS AND PARASITIC DISEASES (3) Anemia Code(s): D64.9 - ANEMIA, UNSPECIFIED
[2019-11-04 15:00] VITALS: TEMP 97.4
[2019-11-04] MEDS ORDERED: VANCOMYCIN 1 GM in D5W (PRE-DOCKED) 1,000 MG/250 ML IVPB SCH (21:00)
--- NOTE | 2019-11-05 12:19 | CONS ---
PULMONARY CONSULTATION DATE OF CONSULTATION: 11/03/2019 REFERRING PHYSICIAN: Daiana Campos MD HISTORY OF PRESENT ILLNESS: Patient is an 79-year-old female with past medical history of Parkinson's, hypothyroidism, malnutrition, history of spinal surgery, spinal fusion currently with a cervical collar who presented from [facility] with 5-day history of subjective fever and right lower quadrant pain. 2 days prior to admission she started developing midline abdominal pain. On admission she underwent a CAT scan of the abdomen and pelvis which revealed a pelvic abscess approximately 6 x 4 x 1.4 cm. There also were subcentimeter pockets of air within the pelvic peritoneal cavity. Of note is it was also noted to have a 7.7 cm opacity in the superior segment of the right lower lobe. Patient denies any history of tobacco use. The patient has a history of pneumonia 3 times in the past. She also states she has had nodules in the past, but could not confirm where she had previous x-rays performed. Patient was admitted and started on IV fluids as well as antibiotic therapy. She was also noted to be anemic for which she was transfused 2 units of packed red blood cells. Patient denies any shortness of breath, denies any chest pains or palpitations, denies any chronic cough or hemoptysis. PAST MEDICAL HISTORY: Again includes Parkinson's disease, malnutrition, cervical spinal fusion, hypothyroidism, also a history of pneumonia. REVIEW OF SYSTEMS: No orthopnea. No PND. Positive abdominal pain. No chest pain. No palpitations. CURRENT MEDICATIONS: Zosyn, vancomycin, Sinemet, normal saline, Aricept and Synthroid. PHYSICAL EXAMINATION: General: Patient is a chronically ill-appearing female, cachectic, awake, alert in no acute distress. Vital Signs: She is afebrile. O2 saturation is 97%. Respiratory rate is 18. Blood pressure is 133/56. HEENT: Normocephalic, atraumatic. Neck: Patient has a cervical collar, unable to examine. Heart: Regular, S1, S2. Chest: Diminished breath sounds bilaterally. Abdomen: Soft, tender throughout. Bowel sounds are present. Extremities: No cyanosis or edema. LABORATORIES: WBC is 7.4. Hemoglobin is 6.8, hematocrit 20.5 with a platelet count of 363,000. BUN 5, creatinine 0.4, alkaline phosphatase 135. Chest CT as noted. IMPRESSION: 1. Fever, abdominal pain secondary to pelvic abscess. 2. Pulmonary nodules, questionable inflammatory versus infectious versus malignant. 3. Hypothyroidism. 4. Parkinson's. 5. Anemia. 6. History of spinal fusion. PLAN: Supplemental O2. Antibiotics as per Infectious Disease. Surgery evaluation. Obtain chest CT. Monitor electrolytes, hemoglobin and hematocrit and normal transfusion threshold. COLLIN ELDER M.D. [id number]
== END 2019-11-04 17:28 | disposition short-term general hospital (02) | DRG 393 ==
LOC: JER 15:08 → JERBED 20:58 → J7W 11-03 00:14
PROVIDERS: ADMIT Internal Medicine
PROC: 30233N1 Transfusion of Nonautologous Red Blood Cells into Peripheral Vein, Percutaneous Approach (ICD-10-PCS; principal; 2019-11-03)
DX: N82.4 Other female intestinal-genital tract fistulae (principal); K65.1 Peritoneal abscess; E46 Unspecified protein-calorie malnutrition; Z68.1 Body mass index [BMI] 19.9 or less, adult; K50.90 Crohn's disease, unspecified, without complications; A04.72 Enterocolitis due to Clostridium difficile, not specified as recurrent; R64 Cachexia; G20 Parkinson's disease; E03.9 Hypothyroidism, unspecified; K46.9 Unspecified abdominal hernia without obstruction or gangrene; E88.09 Other disorders of plasma-protein metabolism, not elsewhere classified; D64.9 Anemia, unspecified; R91.8 Other nonspecific abnormal finding of lung field; E87.6 Hypokalemia; R50.9 Fever, unspecified; K83.8 Other specified diseases of biliary tract; L98.8 Other specified disorders of the skin and subcutaneous tissue; R10.31 Right lower quadrant pain; F03.90 Unspecified dementia, unspecified severity, without behavioral disturbance, psychotic disturbance, mood disturbance, and anxiety; Z96.641 Presence of right artificial hip joint; K86.89 Other specified diseases of pancreas; Z90.49 Acquired absence of other specified parts of digestive tract
CPT/HCPCS: 36415; 36430; 36511; 74177-TC; 80053; 82728; 83540; 83550; 83605; 83735; 84100; 84132; 84466; 85025; 85045; 85610; 86850; 86900; 86901; 86922; 87040; 87070; 87086; 87186; 87205; 87324; 87449; 93005; 93010; 99285-25; J1644; P9038; P9058; U0003

== ENCOUNTER 2020-01-08 14:09 | Emergency (ER) | payer OTHER ==
--- NOTE | 2020-01-08 14:58 | PDOC ---
History of Present Illness - General Chief Complaint: Respiratory Stated Complaint: AMS SOB FEVER POSSIBLE COVID Time Seen by Provider: 01/08/20 14:46 History Source: Patient, Care Provider Exam Limitations: No Limitations - History of Present Illness Initial Comments: 01/08/20 14:58 79F with PMH of Parkinson, dementia, hypothyroid, CKD, protein-calorie malnutrition, suspected Crohn's disease (GI fistula) s/p multiple abdominal surgeries presents to the ED from [facility] for fever and AMS. The pt is awake and communicative but disoriented and a poor historian. She's unable to specify complaints. I spoke with nursing staff at [facility], who stated that yesterday she was febrile, hypotensive, and became more disoriented, but has baseline disoriented (they did not have specific baseline). Pt reported some SOB and cough. Denied cp, numbness/tingling/weakness, n/v, abd pain, diarrhea, constipation. Allergies: azithromycin, ciprofloxacin PCP: Dr Rula Gallegos ROS: GENERAL/CONSTITUTIONAL: No fever or chills. No weakness. CARDIOVASCULAR: No chest pain, +shortness of breath RESPIRATORY: +cough GASTROINTESTINAL: No nausea, vomiting, diarrhea or constipation. GENITOURINARY: No dysuria, frequency, or change in urination. NEUROLOGIC: No headache, vertigo, loss of consciousness, or change in strength/sensation. PE: GENERAL: AOx1 (self, not place or time); no apparent distress HEAD: NC/AT EYES: PERRLA, EOMI, sclera anicteric, conjunctiva clear ENT: dry mucosal membranes CARDIO: RRR, normal S1/S2, no murmurs, rubs, or gallops. LUNGS: No distress, speaks full sentences, mild coarse lung auscultation bilaterally ABDOMEN: Soft, nondistended, mild tenderness diffusely. No guarding, no rebound. abdominal fistulas inferior to naval w/ drainage, and superior to naval w/o drainage, no PEG tube EXTREMITIES: Normal inspection, Normal range of motion, no edema. No sacral ulcers. NEUROLOGICAL: CNII-XII intact. Normal speech. No focal sensorimotor deficits. Cerebellar testing intact. Assessment and Plan 1. sepsis workup 2. cdiff 3. UTI Sameer Espinosa, PGY1 Emergency Medicine Past History - Medical History Allergies/Adverse Reactions: Allergies Allergy/AdvReac Type Severity Reaction Status Date / Time azithromycin [From Zithromax] Allergy Verified 11/02/19 15:12 ciprofloxacin Allergy Verified 11/02/19 15:12 Home Medications: Ambulatory Orders Carbidopa/Levodopa [Carbidopa-Levodopa 25-100 Tab] 1 each PO Q5H 11/02/19 Donepezil HCl [Aricept -] 5 mg PO HS 11/02/19 Levothyroxine [Synthroid -] 25 mcg PO DAILY 11/02/19 Vancomycin Oral Solution 125 mg PO Q6HPO ml 11/03/19 Acetaminophen [Tylenol .Regular Strength -] 1,000 mg PO TID 01/08/20 Diphenoxylate HCl/Atropine [Diphenoxylate-Atrop 2.5-0.025] 1 each PO 01/08/20 Ibuprofen Oral Suspension [Motrin Oral Suspension -] 400 ml PO Q6H PRN 01/08/20 Lidocaine 5% Patch [Lidoderm -] 1 patch TD DAILY 01/08/20 Linezolid in Dextrose 5% [Linezolid 600 mg/300 ml-D5w] 600 mg IV Q12H 01/08/20 Loperamide HCl [Loperamide] 2 mg PO Q2H PRN 01/08/20 Ondansetron [Zofran *Odt*] 4 mg SL AC 01/08/20 Oxycodone HCl [Roxicodone] 10 mg PO Q4H PRN 01/08/20 Piperacillin/Tazob 4.5 gm [Zosyn 4.5GM Ivpb (Pre-Docked)] 4.5 gm IV TID 01/08/20 oxyCODONE HCL [Roxicodone -] 5 mg PO QID 01/08/20 COPD: No GI Disorders: Yes (crohns) - Surgical History Abdominal Surgery: Yes Appendectomy: Yes - Psycho-Social/Smoking History Smoking History: Unknown if ever smoked Have you smoked in the past 12 months: No ED Treatment Course - LABORATORY CBC & Chemistry Diagram: 01/08/20 16:18 01/08/20 16:18 Medical Decision Making - Medical Decision Making 01/08/20 15:50 79F sent from [facility] for fever, hypotension, cough/SOB, and AMS. On exam, lungs coarse, mild abd tenderness around fistulas -> sepsis workup, may be 2/2 PNA, GI fistula, cdiff -> will get CT abd/pelvis 01/08/20 16:53 Labs notable for leukocytosis 12.2 Hgb 7.4 -> will give 1 unit PRBC Trop neg. Lactate 5.8 BUN elevated, in context of anemia and creatinine wnl -> suspected GI bleed -> YOBANY for occult blood 01/08/20 17:[address] Jewell, he suggested starting the pt on 1g vanc and 1g meropenem, and that he would put in Abx orders later. 01/08/20 18:[address] abd/pelvis -> air and fluid containing structure 6x1cm in right lateral pelvis that may be an abscess, and another structure in lower pelvis that could represent abscess. -> will contact GI 01/08/20 22:15 Dr. Truong was spoken to, and suggested transfer. Pending call back from GI at [place]. 01/08/20 22:28 Signed out to night team. Discharge - Discharge Information Problems reviewed: Yes Clinical Impression/Diagnosis: Intra-abdominal abscess Condition: Fair Disposition: TRANSFER ACUTE CARE/OTHER HOSP - Follow up/Referral Referrals: ON STAFF,NOT [Primary Care Provider] - - Patient Discharge Instructions - Post Discharge Activity
[2020-01-08 15:02] VITALS: BMI 21.4
--- NOTE | 2020-01-08 15:56 | PDOC ---
Documentation entered by Roni Arce SCRIBE, acting as scribe for Chinmay Gao MD. Chinmay Gao MD: This documentation has been prepared by the stuarte, Roni Arce SCRIBE, under my direction and personally reviewed by me in its entirety. I confirm that the documentation accurately reflects all work, treatment, procedures, and medical decision making performed by me. Attending Attestation - Resident Resident Name: Sameer Espinosa - ED Attending Attestation I have performed the following: I have examined & evaluated the patient, The case was reviewed & discussed with the resident, I agree w/resident's findings & plan, Exceptions are as noted - HPI HPI: 01/08/20 15:55 Agree w resident hpi - Physicial Exam PE: 01/08/20 15:09 Agree with resident exam
[2020-01-08] MEDS ORDERED: ACETAMINOPHEN 1000 MG/100 ML VIAL (NON FORMULARY) IVPB ONE (16:28)
[2020-01-08 16:39] LABS: BASO % 0.8 % (0-2.0); EOS % 1.6 % (0-4.5); HEMATOCRIT 22.4 % (32.4-45.2); HEMOGLOBIN 7.4 GM/dL (10.7-15.3); LYMPH % 5.4 % (8-40); MCH 34.2 pg (25.7-33.7); MEAN CELL VOLUME 103.7 fl (80-96); MEAN PLT VOLUME 9.6 fl (7.5-11.1); NEUT % 89.2 % (42.8-82.8); PLATELET COUNT 171 K/MM3 (134-434); RBC 2.16 M/mm3 (3.60-5.2); RDW 24.9 % (11.6-15.6); WHITE BLOOD COUNT 12.2 K/mm3 (4.0-10.0)
[2020-01-08] MEDS ORDERED: ACETAMINOPHEN INJECTION 100 ML IVPB ONE (16:51)
[2020-01-08 16:54] LABS: INR 1.34 (0.83-1.09); PROTHROMBIN TIME (PATIENT) 15.7 SEC (9.7-13.0)
[2020-01-08 16:57] LABS: ACTIVATED PTT 40.4 SECONDS (25.2-36.5)
[2020-01-08 17:09] LABS: ALBUMIN 2.1 g/dl (3.4-5.0); ALK PHOS 242 U/L (45-117); ANION GAP 14 MMOL/L (8-16); BILIRUBIN,TOTAL 0.6 mg/dL (0.2-1); BLOOD UREA NITROGEN 36.4 mg/dL (7-18); CALCIUM 8.2 mg/dL (8.5-10.1); CHLORIDE 118 mmol/L (98-107); CO2 12 mmol/L (21-32); CREATININE 0.9 mg/dL (0.55-1.3); GLUCOSE,RANDOM 74 mg/dL (74-106); POTASSIUM 4.4 mmol/L (3.5-5.1); SGOT/AST 32 U/L (15-37); SGPT/ALT < 6 U/L (13-61); SODIUM 144 mmol/L (136-145); TOT PROT 6.2 g/dl (6.4-8.2)
[2020-01-08 17:41] LABS: EPI CELLS 15 /uL (0-25.1); HYALINE CASTS 11 /uL (0-3.1); URINE APPEARANCE TURBID; URINE BACTERIA 37 /uL (0-1359); URINE BILIRUBIN NEGATIVE (NEGATIVE); URINE COLOR YELLOW; URINE GLUCOSE (UA) NEGATIVE (NEGATIVE); URINE KETONE NEGATIVE (NEGATIVE); URINE LEUK ESTERASE 3+ (NEGATIVE); URINE NITRITE NEGATIVE (NEGATIVE); URINE PROTEIN 1+ (NEGATIVE); URINE UROBILINOGEN 0.2 mg/dL (0.2-1.0); URINE WBC 8905 /uL (0-25.8)
[2020-01-08] MEDS ORDERED: MEROPENEM 1 GM in DEXTROSE 5%-WATER 100 ML IVPB ONE (17:56)
[2020-01-08] MEDS ORDERED: VANCOMYCIN 1 GM in D5W (PRE-DOCKED) 1,000 MG/250 ML IVPB ONE (17:56)
[2020-01-08] MEDS ORDERED: MEROPENEM 1 GM VIAL (RESTRICTED TO ID) IVPB ONE (18:10)
[2020-01-08] MEDS ORDERED: VANCOMYCIN 1 GRAM (PRE-DOCKED) 1,000 MG/250 ML BAG IVPB ONE (18:11)
[2020-01-08] MEDS ORDERED: LACTATED RINGERS SOLUTION 1000 ML INFUS.BAG IV ONE (19:04)
[2020-01-08 20:38] LABS: ANISOCYTOSIS 2+; MACROCYTOSIS 1+; PLATELET ESTIMATE NORMAL
[2020-01-08 20:48] LABS: URINE RBC 499.5 /uL (0-23.9); YEAST NONE SEEN (NEGATIVE)
--- NOTE | 2020-01-09 00:08 | PDOC ---
*Physical Exam - Vital Signs Last Vital Signs Temp Pulse Resp BP Pulse Ox 98.1 F 90 18 119/52 L 99 01/08/20 23:01 01/08/20 23:01 01/08/20 23:01 01/08/20 23:01 01/08/20 23:01 ED Treatment Course - LABORATORY CBC & Chemistry Diagram: 01/08/20 16:18 01/08/20 16:18 - ADDITIONAL ORDERS Additional order review: Laboratory Results 01/08/20 01/08/20 01/08/20 21:40 19:00 16:18 PT with INR INR PTT (Actin FS) Sodium Potassium Chloride Carbon Dioxide Anion Gap BUN Creatinine Est GFR (CKD-EPI)AfAm Est GFR (CKD-EPI)NonAf Random Glucose Lactic Acid 2.8 H* Calcium Total Bilirubin AST ALT Alkaline Phosphatase Creatine Kinase Troponin I Total Protein Albumin Urine Color Yellow Urine Appearance Turbid Urine pH 5.0 Ur Specific [place] 1.020 Urine Protein 1+ H Urine Glucose (UA) Negative Urine Ketones Negative Urine Blood 2+ H Urine Nitrite Negative Urine Bilirubin Negative Urine Urobilinogen 0.2 Ur Leukocyte Esterase 3+ H Urine WBC (Auto) 8905 Urine RBC (Auto) 499.5 Urine Casts (Auto) 11 U Pathogenic Cast Auto None seen U Epithel Cells (Auto) 15 Urine Bacteria (Auto) 37 Urine Yeast (Auto) None seen Blood Type O POSITIVE Antibody Screen Negative Crossmatch See Detail 01/08/20 01/08/20 01/08/20 16:18 16:18 14:18 PT with INR 15.70 H INR 1.34 H PTT (Actin FS) 40.4 H Sodium 144 Potassium 4.4 Chloride 118 H Carbon Dioxide 12 L Anion Gap 14 BUN 36.4 H Creatinine 0.9 Est GFR (CKD-EPI)AfAm 69.50 Est GFR (CKD-EPI)NonAf 59.96 Random Glucose 74 Lactic Acid 5.8 H* Calcium 8.2 L Total Bilirubin 0.6 AST 32 ALT < 6 L Alkaline Phosphatase 242 H Creatine Kinase 26 Troponin I < 0.02 Total Protein 6.2 L Albumin 2.1 L Urine Color Urine Appearance Urine pH Ur Specific [place] Urine Protein Urine Glucose (UA) Urine Ketones Urine Blood Urine Nitrite Urine Bilirubin Urine Urobilinogen Ur Leukocyte Esterase Urine WBC (Auto) Urine RBC (Auto) Urine Casts (Auto) U Pathogenic Cast Auto U Epithel Cells (Auto) Urine Bacteria (Auto) Urine Yeast (Auto) Blood Type Antibody Screen Crossmatch 01/08/20 16:18 RBC 2.16 L MCV 103.7 H MCHC 33.0 RDW 24.9 H MPV 9.6 D Neutrophils % 89.2 H D Lymphocytes % 5.4 L D Monocytes % 3.0 L Eosinophils % 1.6 D Basophils % 0.8 - Medications Given in the ED: ED Medications Discontinued Medications Generic Name Dose Route Start Last Admin Trade Name Villa PRN Reason Stop Dose Admin Acetaminophen 1,000 mg 01/08/20 16:28 01/08/20 17:34 Ofirmev Injection - IVPB 01/08/20 16:29 1,000 mg ONCE ONE Administration Meropenem 1 gm/ Dextrose 100 mls @ 200 mls/hr 01/08/20 17:56 01/08/20 19:01 IVPB 01/08/20 18:25 200 mls/hr ONCE ONE Administration Lactated Ringer's 500 ml 01/08/20 19:04 01/08/20 19:42 Lactated Ringers Solution IV 01/08/20 19:05 500 ml ONCE ONE Administration Vancomycin HCl 1,000 mg 01/08/20 17:56 01/08/20 19:42 Vancomycin (Pre-Docked) IVPB 01/08/20 17:57 1,000 mg ONCE ONE Administration Protocol Medical Decision Making - Medical Decision Making 01/09/20 00:05 79F with PMH of Parkinson, dementia, hypothyroid, CKD, protein-calorie malnutrition, suspected Crohn's disease (GI fistula) s/p multiple abdominal surgeries presents to the ED from [facility] for fever, hypotension, and AMS. The pt is awake and communicative but disoriented and a poor historian. She's unable to specify complaints. Day team spoke with nursing staff at [facility], who stated that yesterday she was febrile, hypotensive, and became more disoriented, but has baseline disoriented (they did not have specific baseline). Pt reported some SOB and cough. Denied cp, numbness/tingling/weakness, n/v, abd pain, diarrhea, constipation. Allergies: azithromycin, ciprofloxacin PCP: Dr Rula Gallegos GI: unknown at [place] ABDOMEN: Soft, nondistended, mild tenderness diffusely. No guarding, no rebound. 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 Lactate 5.8 BUN elevated, in context of anemia and creatinine wnl -> suspected GI bleed Day team spoke to Dr. Jewell, he suggested starting the pt on 1g vanc and 1g meropenem, and that he would put in Abx orders later. CT head negative. CT abd/pelvis -> air and fluid containing structure 6x1cm in right lateral pelvis that may be an abscess, and another structure in lower pelvis that could represent abscess. -> will contact GI GI Dr. Truong was spoken to by day team, and suggested transfer. Pending call back from GI at [place]. Lact downtrending 5.8 to 2.8. Spoke to [facility] transfer center for tx. 01/09/20 00:15 Bilateral wheezing -duonebs 01/09/20 02:13 Pt's wheezing improved with duonebs. Pt hemodynamically stable, afebrile. Discussed case with Orestes Sigala and Dieter at [facility], pt accepted and has bed on [address] [place] [address]. Disc with images made. Pt and pt's stepson consent to transport verbally in person/by phone respectively. Transport ETA 1hr. Discharge - Discharge Information Problems reviewed: Yes Clinical Impression/Diagnosis: Intra-abdominal abscess Condition: Fair Disposition: TRANSFER ACUTE CARE/OTHER HOSP - Admission No - Follow up/Referral Referrals: ON STAFF,NOT [Primary Care Provider] - - Patient Discharge Instructions - Post Discharge Activity
[2020-01-09] MEDS ORDERED: ALBUTEROL SO4 2.5/IPRATROPIUM 0.5 INH SOL 3 ML VIAL.NEB. NEB ONE ×4 (00:11→02:59)
[2020-01-09 02:14] VITALS: PULSE 101
[2020-01-09 03:09] VITALS: BP 131/56; TEMP 97.8
--- NOTE | 2020-01-09 09:51 | EKG ---
Test Reason : Blood Pressure : / mmHG Vent. Rate : 092 BPM Atrial Rate : 092 BPM P-R Int : 144 ms QRS Dur : 068 ms QT Int : 360 ms P-R-T Axes : 066 035 030 degrees QTc Int : 445 ms NORMAL SINUS RHYTHM SEPTAL INFARCT (CITED ON OR BEFORE 02-NOV-2019) ABNORMAL ECG WHEN COMPARED WITH ECG OF 02-NOV-2019 15:14, QRS VOLTAGE HAS DECREASED Confirmed by MD Chris, Chuy ([id number]) on 01/09/2020 9:50:35 AM Referred By: Confirmed By:Chuy Perez MD
== END 2020-01-09 03:22 | disposition short-term general hospital (02) ==
LOC: JER 14:09
PROC: 3E0F7GC Introduction of Other Therapeutic Substance into Respiratory Tract, Via Natural or Artificial Opening (ICD-10-PCS; principal; 2020-01-08)
PROC: 3E03329 Introduction of Other Anti-infective into Peripheral Vein, Percutaneous Approach (ICD-10-PCS; 2020-01-08)
PROC: 3E033GC Introduction of Other Therapeutic Substance into Peripheral Vein, Percutaneous Approach (ICD-10-PCS; 2020-01-08)
DX: K65.1 Peritoneal abscess (principal)
CPT/HCPCS: 36415; 36430; 70450-TC; 71045-TC-FY; 74177-TC; 80053; 81003; 82550; 83605; 84484; 85025; 85610; 85730; 86850; 86900; 86901; 86922; 87040; 87077; 87086; 87106; 93005; 93010; 99285-25; J0131; P9058; Q9967

== ENCOUNTER 2020-11-13 12:31 | Emergency (ER) | payer OTHER ==
[2020-11-13 13:07] VITALS: TEMP 98.4; BMI 17.2
[2020-11-13] MEDS ORDERED: VANCOMYCIN 1 GM in D5W (PRE-DOCKED) 1,000 MG/250 ML IVPB ONE (14:21)
[2020-11-13] MEDS ORDERED: SODIUM CHLORIDE 0.9% 500 ML INFUS.BAG IV ONE (14:21)
[2020-11-13] MEDS ORDERED: morphine CARPU-JECT 2 MG/1 ML DISP.SYRIN IVPUSH ONE (14:57)
[2020-11-13 15:04] LABS: BASO % 1.1 % (0-2.0); EOS % 2.6 % (0-4.5); HEMATOCRIT 22.8 % (32.4-45.2); HEMOGLOBIN 7.7 GM/dL (10.7-15.3); LYMPH % 14.4 % (8-40); MCH 33.1 pg (25.7-33.7); MCHC 33.6 g/dl (32.0-36.0); MEAN CELL VOLUME 98.4 fl (80-96); MEAN PLT VOLUME 6.7 fl (7.5-11.1); MONO % 8.3 % (3.8-10.2); NEUT % 73.6 % (42.8-82.8); PLATELET COUNT 495 10^3/uL (134-434); RBC 2.32 M/mm3 (3.60-5.2); RDW 18.5 % (11.6-15.6)
[2020-11-13 15:15] LABS: INR 1.23 (0.83-1.09)
[2020-11-13 15:17] LABS: ACTIVATED PTT 28.9 SECONDS (25.2-36.5)
[2020-11-13] MEDS ORDERED: VANCOMYCIN 1 GRAM (PRE-DOCKED) 1,000 MG/250 ML BAG IVPB ONE (15:20)
[2020-11-13] MEDS ORDERED: MORPHINE SULFATE 2 MG/ML VIAL ONE (15:20)
[2020-11-13 15:24] LABS: CHLORIDE 107 mmol/L (98-107); SODIUM 138 mmol/L (136-145)
[2020-11-13 15:26] LABS: ALBUMIN 1.6 g/dl (3.4-5.0); ANION GAP 8 MMOL/L (8-16); BLOOD UREA NITROGEN 10.2 mg/dL (7-18); CALCIUM 7.2 mg/dL (8.5-10.1); CO2 22 mmol/L (21-32); GLUCOSE,RANDOM 101 mg/dL (74-106)
[2020-11-13 15:27] LABS: MAGNESIUM 1.6 mg/dL (1.8-2.4)
[2020-11-13 15:29] LABS: SGOT/AST 26 U/L (15-37); SGPT/ALT < 6 U/L (13-61)
[2020-11-13 15:30] LABS: CREATININE 0.3 mg/dL (0.55-1.3)
[2020-11-13 15:31] LABS: BILIRUBIN,TOTAL 0.3 mg/dL (0.2-1); TOT PROT 5.3 g/dl (6.4-8.2)
[2020-11-13 15:32] LABS: ALK PHOS 186 U/L (45-117)
[2020-11-13] MEDS ORDERED: PIPERACILLIN/TAZOB 4.5 GM 4.5 GM in DEXTROSE 5%-WATER 100 ML IVPB ONE (20:42)
[2020-11-13] MEDS ORDERED: PIPERACILLIN/TAZOB 4.5 GM 4.5 GM/100 ML BAG IVPB ONE (21:01)
[2020-11-13 23:15] VITALS: BP 108/53; PULSE 83
== END 2020-11-14 03:44 | disposition short-term general hospital (02) ==
LOC: JER 12:31
PROC: 3E033GC Introduction of Other Therapeutic Substance into Peripheral Vein, Percutaneous Approach (ICD-10-PCS; principal; 2020-11-13)
DX: K65.1 Peritoneal abscess (principal); K63.2 Fistula of intestine; D64.9 Anemia, unspecified
CPT/HCPCS: 36415; 71045-TC-FY; 74177-TC; 76937; 80053; 82550; 83605; 83735; 84484; 85025; 85610; 85730; 86850; 86900; 86901; 87040; 87324; 87449; 93005; 93010; 99285-25; C9803; Q9967; U0003; U0005

== ENCOUNTER 2021-03-05 14:47 | Inpatient (IN) | payer OTHER ==
[2021-03-05 15:59] VITALS: BMI 17.6
[2021-03-05 16:30] LABS: BASO % 0.4 % (0-2.0); EOS % 0.4 % (0-4.5); HEMATOCRIT 18.6 % (32.4-45.2); LYMPH % 19.1 % (8-40); MCH 36.7 pg (25.7-33.7); MCHC 31.2 g/dl (32.0-36.0); MEAN CELL VOLUME 117.5 fl (80-96); MEAN PLT VOLUME 7.2 fl (7.5-11.1); MONO % 10.9 % (3.8-10.2); NEUT % 69.2 % (42.8-82.8); PLATELET COUNT 415 10^3/uL (134-434); RBC 1.58 M/mm3 (3.60-5.2); RDW 19.5 % (11.6-15.6); WHITE BLOOD COUNT 7.4 K/mm3 (4.0-10.0)
[2021-03-05 16:35] LABS: EPI CELLS >36 /uL (0-25.1); HYALINE CASTS 89 /uL (0-3.1); URINE APPEARANCE TURBID; URINE BACTERIA >9,000 /uL (0-1359); URINE BILIRUBIN 1+ (NEGATIVE); URINE COLOR DK YELLOW; URINE GLUCOSE (UA) NEGATIVE (NEGATIVE); URINE KETONE TRACE (NEGATIVE); URINE LEUK ESTERASE 3+ (NEGATIVE); URINE NITRITE POSITIVE (NEGATIVE); URINE PROTEIN 3+ (NEGATIVE); URINE WBC 11931 /uL (0-25.8)
[2021-03-05 16:39] LABS: INR 1.63 (0.83-1.09); PROTHROMBIN TIME (PATIENT) 18.4 SEC (9.7-13.0)
[2021-03-05 16:42] LABS: ACTIVATED PTT 36.4 SECONDS (25.2-36.5)
[2021-03-05 16:43] LABS: CHLORIDE 112 mmol/L (98-107); SODIUM 143 mmol/L (136-145)
[2021-03-05 16:45] LABS: ANION GAP 8 MMOL/L (8-16); BLOOD UREA NITROGEN 10.2 mg/dL (7-18); CALCIUM 7.1 mg/dL (8.5-10.1); CO2 23 mmol/L (21-32); GLUCOSE,RANDOM 90 mg/dL (74-106)
[2021-03-05 16:46] LABS: ALBUMIN 0.9 g/dl (3.4-5.0)
[2021-03-05 16:48] LABS: SGOT/AST 12 U/L (15-37); SGPT/ALT < 6 U/L (13-61)
[2021-03-05 16:49] LABS: CREATININE 0.4 mg/dL (0.55-1.3)
[2021-03-05 16:50] LABS: BILIRUBIN,TOTAL 0.4 mg/dL (0.2-1); HEMOGLOBIN 5.8 GM/dL (10.7-15.3); TOT PROT 4.8 g/dl (6.4-8.2)
[2021-03-05 16:51] LABS: ALK PHOS 120 U/L (45-117)
[2021-03-05 17:14] LABS: LACTIC ACID 2.3 mmol/L (0.4-2.0)
[2021-03-05 18:07] LABS: URINE RBC 372.6 /uL (0-23.9)
[2021-03-06 06:57] LABS: BASO % 0.5 % (0-2.0); EOS % 1.1 % (0-4.5); HEMATOCRIT 27.5 % (32.4-45.2); HEMOGLOBIN 9.2 GM/dL (10.7-15.3); LYMPH % 15.9 % (8-40); MCH 35.8 pg (25.7-33.7); MCHC 33.4 g/dl (32.0-36.0); MEAN CELL VOLUME 107.3 fl (80-96); MEAN PLT VOLUME 7.5 fl (7.5-11.1); MONO % 8.6 % (3.8-10.2); NEUT % 73.9 % (42.8-82.8); PLATELET COUNT 353 10^3/uL (134-434); RBC 2.57 M/mm3 (3.60-5.2); RDW 22.4 % (11.6-15.6); WHITE BLOOD COUNT 7.8 K/mm3 (4.0-10.0)
[2021-03-06 07:12] LABS: CHLORIDE 112 mmol/L (98-107); SODIUM 141 mmol/L (136-145)
[2021-03-06 07:14] LABS: ALBUMIN 0.8 g/dl (3.4-5.0); ANION GAP 8 MMOL/L (8-16); CO2 21 mmol/L (21-32); GLUCOSE,RANDOM 75 mg/dL (74-106); MAGNESIUM 1.7 mg/dL (1.8-2.4)
[2021-03-06 07:15] LABS: BLOOD UREA NITROGEN 10.1 mg/dL (7-18)
[2021-03-06 07:17] LABS: CREATININE 0.4 mg/dL (0.55-1.3); PHOSPHOROUS 3.3 mg/dL (2.5-4.9)
[2021-03-06 07:18] LABS: SGOT/AST 31 U/L (15-37)
[2021-03-06 07:19] LABS: TOT PROT 4.9 g/dl (6.4-8.2)
[2021-03-06 07:20] LABS: ALK PHOS 107 U/L (45-117)
[2021-03-06 07:39] LABS: LACTIC ACID 2.3 mmol/L (0.4-2.0)
[2021-03-06 07:40] LABS: CALCIUM 6.9 mg/dL (8.5-10.1); SGPT/ALT < 6 U/L (13-61)
[2021-03-07 06:51] LABS: BASO % 0.2 % (0-2.0); EOS % 0.9 % (0-4.5); HEMATOCRIT 33.6 % (32.4-45.2); HEMOGLOBIN 11.2 GM/dL (10.7-15.3); LYMPH % 7.1 % (8-40); MCH 33.9 pg (25.7-33.7); MCHC 33.3 g/dl (32.0-36.0); MEAN CELL VOLUME 101.8 fl (80-96); MEAN PLT VOLUME 7.3 fl (7.5-11.1); MONO % 5.9 % (3.8-10.2); NEUT % 85.9 % (42.8-82.8); PLATELET COUNT 331 10^3/uL (134-434); RDW 23.4 % (11.6-15.6); WHITE BLOOD COUNT 12.1 K/mm3 (4.0-10.0)
[2021-03-07 07:06] LABS: CHLORIDE 117 mmol/L (98-107); SODIUM 145 mmol/L (136-145)
[2021-03-07 07:14] LABS: ALBUMIN 0.9 g/dl (3.4-5.0); BLOOD UREA NITROGEN 9.9 mg/dL (7-18); CO2 19 mmol/L (21-32); GLUCOSE,RANDOM 63 mg/dL (74-106); IRON SERUM 72 ug/dL (50-175); MAGNESIUM 1.5 mg/dL (1.8-2.4); TOTAL IRON BINDING CAPACITY 81 ug/dL (250-450)
[2021-03-07 07:15] LABS: CREATININE 0.4 mg/dL (0.55-1.3); SGOT/AST 10 U/L (15-37)
[2021-03-07 07:17] LABS: BILIRUBIN,TOTAL 0.9 mg/dL (0.2-1); TOT PROT 4.9 g/dl (6.4-8.2)
[2021-03-07 07:18] LABS: ALK PHOS 102 U/L (45-117); ANION GAP 10 MMOL/L (8-16); CALCIUM 6.6 mg/dL (8.5-10.1); SGPT/ALT < 6 U/L (13-61)
[2021-03-08 10:14] LABS: BASO % 0.6 % (0-2.0); EOS % 1.3 % (0-4.5); HEMATOCRIT 30.7 % (32.4-45.2); HEMOGLOBIN 10.3 GM/dL (10.7-15.3); LYMPH % 10.1 % (8-40); MCH 34.1 pg (25.7-33.7); MCHC 33.5 g/dl (32.0-36.0); MEAN CELL VOLUME 101.7 fl (80-96); MEAN PLT VOLUME 7.1 fl (7.5-11.1); MONO % 7.9 % (3.8-10.2); NEUT % 80.1 % (42.8-82.8); PLATELET COUNT 299 10^3/uL (134-434); RBC 3.02 M/mm3 (3.60-5.2); RDW 22.8 % (11.6-15.6); WHITE BLOOD COUNT 8.6 K/mm3 (4.0-10.0)
[2021-03-08 10:35] LABS: CHLORIDE 117 mmol/L (98-107); SODIUM 145 mmol/L (136-145)
[2021-03-08 10:39] LABS: BLOOD UREA NITROGEN 9.6 mg/dL (7-18); CO2 17 mmol/L (21-32); GLUCOSE,RANDOM 53 mg/dL (74-106)
[2021-03-08 10:40] LABS: ALBUMIN 0.9 g/dl (3.4-5.0)
[2021-03-08 10:42] LABS: CREATININE 0.6 mg/dL (0.55-1.3)
[2021-03-08 10:43] LABS: BILIRUBIN,TOTAL 0.6 mg/dL (0.2-1); SGOT/AST 14 U/L (15-37); TOT PROT 4.8 g/dl (6.4-8.2)
[2021-03-08 10:44] LABS: ALK PHOS 99 U/L (45-117)
[2021-03-08 10:47] LABS: ANION GAP 11 MMOL/L (8-16); CALCIUM 6.6 mg/dL (8.5-10.1); SGPT/ALT < 6 U/L (13-61)
[2021-03-09 08:02] LABS: BASO % 0.2 % (0-2.0); EOS % 1.1 % (0-4.5); HEMATOCRIT 29.6 % (32.4-45.2); HEMOGLOBIN 10.2 GM/dL (10.7-15.3); LYMPH % 9.4 % (8-40); MCHC 34.3 g/dl (32.0-36.0); MEAN PLT VOLUME 7.2 fl (7.5-11.1); MONO % 7.5 % (3.8-10.2); NEUT % 81.8 % (42.8-82.8); PLATELET COUNT 283 10^3/uL (134-434); RDW 22.7 % (11.6-15.6); WHITE BLOOD COUNT 8.3 K/mm3 (4.0-10.0)
[2021-03-09 08:21] LABS: CHLORIDE 122 mmol/L (98-107); SODIUM 147 mmol/L (136-145)
[2021-03-09 08:28] LABS: ALBUMIN 0.8 g/dl (3.4-5.0); ANION GAP 9 MMOL/L (8-16); BLOOD UREA NITROGEN 11.8 mg/dL (7-18); CO2 16 mmol/L (21-32); GLUCOSE,RANDOM 58 mg/dL (74-106); MAGNESIUM 1.8 mg/dL (1.8-2.4)
[2021-03-09 08:32] LABS: BILIRUBIN,TOTAL 0.4 mg/dL (0.2-1); CREATININE 1.1 mg/dL (0.55-1.3); SGOT/AST 13 U/L (15-37)
[2021-03-09 08:33] LABS: TOT PROT 4.5 g/dl (6.4-8.2)
[2021-03-09 08:34] LABS: ALK PHOS 95 U/L (45-117)
[2021-03-09 08:41] LABS: CALCIUM 6.8 mg/dL (8.5-10.1); SGPT/ALT < 6 U/L (13-61)
[2021-03-09 12:16] LABS: ANISOCYTOSIS 2+; MACROCYTOSIS 1+; OVALOCYTE 1+; PLATELET ESTIMATE NORMAL; TEAR DROP CELLS 1+
[2021-03-10 08:10] LABS: HEMATOCRIT 29.4 % (32.4-45.2); HEMOGLOBIN 9.9 GM/dL (10.7-15.3); MCH 34.7 pg (25.7-33.7); MCHC 33.7 g/dl (32.0-36.0); MEAN CELL VOLUME 102.9 fl (80-96); MEAN PLT VOLUME 7.9 fl (7.5-11.1); PLATELET COUNT 259 10^3/uL (134-434); RBC 2.86 M/mm3 (3.60-5.2); RDW 23.3 % (11.6-15.6); WHITE BLOOD COUNT 8.3 K/mm3 (4.0-10.0)
[2021-03-10 08:24] LABS: CHLORIDE 119 mmol/L (98-107); SODIUM 145 mmol/L (136-145)
[2021-03-10 08:32] LABS: ALBUMIN 0.8 g/dl (3.4-5.0); ANION GAP 7 MMOL/L (8-16); BLOOD UREA NITROGEN 11.9 mg/dL (7-18); CO2 18 mmol/L (21-32); GLUCOSE,RANDOM 78 mg/dL (74-106); MAGNESIUM 1.7 mg/dL (1.8-2.4)
[2021-03-10 08:35] LABS: CREATININE 1.2 mg/dL (0.55-1.3); SGOT/AST 17 U/L (15-37); SGPT/ALT < 6 U/L (13-61)
[2021-03-10 08:37] LABS: BILIRUBIN,TOTAL 0.5 mg/dL (0.2-1); TOT PROT 4.2 g/dl (6.4-8.2)
[2021-03-10 08:38] LABS: ALK PHOS 97 U/L (45-117)
[2021-03-10 08:52] LABS: CALCIUM 6.9 mg/dL (8.5-10.1)
[2021-03-11 08:47] LABS: BLOOD UREA NITROGEN 9.8 mg/dL (7-18); CALCIUM 7.1 mg/dL (8.5-10.1)
[2021-03-11 08:48] LABS: MAGNESIUM 2.4 mg/dL (1.8-2.4)
[2021-03-11 08:50] LABS: PHOSPHOROUS 3.7 mg/dL (2.5-4.9)
[2021-03-11 08:51] LABS: CREATININE 1.3 mg/dL (0.55-1.3)
[2021-03-11 11:39] LABS: INR 1.87 (0.83-1.09); PROTHROMBIN TIME (PATIENT) 21.1 SEC (9.7-13.0)
[2021-03-12 07:46] LABS: HEMATOCRIT 32.3 % (32.4-45.2); HEMOGLOBIN 10.7 GM/dL (10.7-15.3); MEAN CELL VOLUME 103.2 fl (80-96); MEAN PLT VOLUME 8.2 fl (7.5-11.1); PLATELET COUNT 231 10^3/uL (134-434); RBC 3.13 M/mm3 (3.60-5.2); RDW 23.2 % (11.6-15.6); WHITE BLOOD COUNT 14.1 K/mm3 (4.0-10.0)
[2021-03-12 08:06] LABS: CHLORIDE 120 mmol/L (98-107); SODIUM 147 mmol/L (136-145)
[2021-03-12 08:09] LABS: ANION GAP 10 MMOL/L (8-16); CO2 18 mmol/L (21-32); GLUCOSE,RANDOM 74 mg/dL (74-106); MAGNESIUM 2.1 mg/dL (1.8-2.4)
[2021-03-12 08:12] LABS: CALCIUM 6.8 mg/dL (8.5-10.1); CREATININE 1.4 mg/dL (0.55-1.3)
[2021-03-13 08:56] LABS: EPI CELLS 11 /uL (0-25.1); HYALINE CASTS 4 /uL (0-3.1); PH,URINE 6.5 (5.0-8.0); URINE APPEARANCE CLOUDY; URINE BACTERIA 982 /uL (0-1359); URINE BILIRUBIN NEGATIVE (NEGATIVE); URINE COLOR YELLOW; URINE GLUCOSE (UA) NEGATIVE (NEGATIVE); URINE KETONE TRACE (NEGATIVE); URINE LEUK ESTERASE 3+ (NEGATIVE); URINE NITRITE NEGATIVE (NEGATIVE); URINE PROTEIN 1+ (NEGATIVE); URINE RBC 17 /uL (0-23.9); URINE UROBILINOGEN 0.2 mg/dL (0.2-1.0); URINE WBC 879 /uL (0-25.8)
[2021-03-13 10:10] LABS: YEAST NON SEEN (NEGATIVE)
[2021-03-13 10:12] LABS: HEMATOCRIT 30.7 % (32.4-45.2); MCH 33.7 pg (25.7-33.7); MCHC 32.5 g/dl (32.0-36.0); MEAN CELL VOLUME 103.7 fl (80-96); MEAN PLT VOLUME 8.2 fl (7.5-11.1); PLATELET COUNT 170 10^3/uL (134-434); RBC 2.96 M/mm3 (3.60-5.2); RDW 22.6 % (11.6-15.6); WHITE BLOOD COUNT 11.1 K/mm3 (4.0-10.0)
[2021-03-13 10:28] LABS: CHLORIDE 117 mmol/L (98-107); SODIUM 145 mmol/L (136-145)
[2021-03-13 10:31] LABS: BLOOD UREA NITROGEN 17.4 mg/dL (7-18); CO2 20 mmol/L (21-32); GLUCOSE,RANDOM 94 mg/dL (74-106); MAGNESIUM 1.9 mg/dL (1.8-2.4)
[2021-03-13 10:34] LABS: CREATININE 1.4 mg/dL (0.55-1.3); PHOSPHOROUS 1.6 mg/dL (2.5-4.9)
[2021-03-13 10:37] LABS: ANION GAP 7 MMOL/L (8-16); CALCIUM 6.7 mg/dL (8.5-10.1)
[2021-03-13 12:45] VITALS: BP 90/44; PULSE 88; TEMP 97.9
== END 2021-03-13 13:45 | DRG 871 ==
LOC: JER 14:47 → JERBED 19:26 → J4S 03-08 19:06
PROC: 30233N1 Transfusion of Nonautologous Red Blood Cells into Peripheral Vein, Percutaneous Approach (ICD-10-PCS; principal; 2021-03-06)
PROC: 02HV33Z Insertion of Infusion Device into Superior Vena Cava, Percutaneous Approach (ICD-10-PCS; 2021-03-12)
PROC: B518ZZA Fluoroscopy of Superior Vena Cava, Guidance (ICD-10-PCS; 2021-03-12)
DX: A41.89 Other specified sepsis (principal); K65.1 Peritoneal abscess; N39.0 Urinary tract infection, site not specified; K63.2 Fistula of intestine; L03.314 Cellulitis of groin; K57.32 Diverticulitis of large intestine without perforation or abscess without bleeding; N17.9 Acute kidney failure, unspecified; E87.0 Hyperosmolality and hypernatremia; R64 Cachexia; Z68.1 Body mass index [BMI] 19.9 or less, adult; M46.22 Osteomyelitis of vertebra, cervical region; A04.72 Enterocolitis due to Clostridium difficile, not specified as recurrent; L02.211 Cutaneous abscess of abdominal wall; E46 Unspecified protein-calorie malnutrition; E87.2 Acidosis; I12.9 Hypertensive chronic kidney disease with stage 1 through stage 4 chronic kidney disease, or unspecified chronic kidney disease; N18.9 Chronic kidney disease, unspecified; E03.9 Hypothyroidism, unspecified; L98.8 Other specified disorders of the skin and subcutaneous tissue; G30.9 Alzheimer's disease, unspecified; B96.20 Unspecified Escherichia coli [E. coli] as the cause of diseases classified elsewhere; B95.2 Enterococcus as the cause of diseases classified elsewhere; B96.4 Proteus (mirabilis) (morganii) as the cause of diseases classified elsewhere; F02.80 Dementia in other diseases classified elsewhere, unspecified severity, without behavioral disturbance, psychotic disturbance, mood disturbance, and anxiety; E87.6 Hypokalemia; G20 Parkinson's disease; K57.90 Diverticulosis of intestine, part unspecified, without perforation or abscess without bleeding; D64.9 Anemia, unspecified; Z90.49 Acquired absence of other specified parts of digestive tract; Z96.641 Presence of right artificial hip joint; Z86.718 Personal history of other venous thrombosis and embolism; Z66 Do not resuscitate; N73.9 Female pelvic inflammatory disease, unspecified
CPT/HCPCS: 36415; 36430; 36569; 71045-TC-FY; 74177-TC; 76775-TC; 80048; 80053; 81003; 82436; 82570; 82962; 83540; 83550; 83605; 83735; 84100; 84133; 84300; 84443; 84484; 85025; 85027; 85610; 85730; 86140; 86850; 86900; 86901; 86922; 87040; 87070; 87086; 87186; 87205; 87324; 87449; 93005; 93010; 99285-25; C9803; P9058; Q9967; U0003; U0005

== ENCOUNTER 2021-04-16 20:09 | Inpatient (IN) | payer OTHER ==
[2021-04-16] MEDS ORDERED: SODIUM CHLORIDE 0.9% 500 ML INFUS.BAG IV ONE (20:43)
[2021-04-16] MEDS ORDERED: PIPERACILLIN/TAZOB 4.5 GM 4.5 GM in DEXTROSE 5%-WATER 100 ML IVPB ONE (21:39)
[2021-04-16] MEDS ORDERED: VANCOMYCIN 1 GM in D5W (PRE-DOCKED) 1,000 MG/250 ML IVPB ONE (21:45)
[2021-04-16] MEDS ORDERED: PIPERACILLIN/TAZOB 4.5 GM 4.5 GM/100 ML BAG IVPB ONE (21:51)
[2021-04-16 21:55] LABS: BASO % 0.2 % (0-2.0); EOS % 0.2 % (0-4.5); HEMATOCRIT 24.7 % (32.4-45.2); HEMOGLOBIN 7.8 GM/dL (10.7-15.3); LYMPH % 6.9 % (8-40); MCH 32.7 pg (25.7-33.7); MCHC 31.4 g/dl (32.0-36.0); MEAN PLT VOLUME 8.4 fl (7.5-11.1); MONO % 5.5 % (3.8-10.2); NEUT % 87.2 % (42.8-82.8); PLATELET COUNT 224 10^3/uL (134-434); RBC 2.37 M/mm3 (3.60-5.2); RDW 20.2 % (11.6-15.6); WHITE BLOOD COUNT 18.9 K/mm3 (4.0-10.0)
[2021-04-16 21:59] LABS: VENOUS BASE EXCESS -14.4 mmol/L (-2-2); VENOUS O2 SATURATION 69.1 % (70-80); VENOUS PCO2 21.9 mmHg (38-52); VENOUS PH 7.298 (7.310-7.410)
[2021-04-16] MEDS ORDERED: LACTATED RINGERS SOLUTION 1,000 ML/1,000 ML INFUS.BAG IV STA (22:00)
[2021-04-16] MEDS ORDERED: LACTATED RINGERS SOLUTION 1,000 ML/1,000 ML INFUS.BAG IV ONE (22:01)
[2021-04-16 22:12] LABS: ACTIVATED PTT 34.6 SECONDS (25.2-36.5); INR 2.4 (0.83-1.09); PROTHROMBIN TIME (PATIENT) 27.9 SEC (9.7-13.0)
[2021-04-16] MEDS ORDERED: VANCOMYCIN 1 GRAM (PRE-DOCKED) 1,000 MG/250 ML BAG IVPB ONE (22:14)
[2021-04-16 22:23] LABS: CHLORIDE 116 mmol/L (98-107); SODIUM 144 mmol/L (136-145)
[2021-04-16 22:25] LABS: BLOOD UREA NITROGEN 25.9 mg/dL (7-18); CO2 11 mmol/L (21-32); GLUCOSE,RANDOM 83 mg/dL (74-106)
[2021-04-16 22:28] LABS: CREATININE 1.7 mg/dL (0.55-1.3); SGPT/ALT 14 U/L (13-61)
[2021-04-16 22:29] LABS: BILIRUBIN,TOTAL 0.4 mg/dL (0.2-1); SGOT/AST 30 U/L (15-37)
[2021-04-16 22:30] LABS: TOT PROT 5.2 g/dl (6.4-8.2)
[2021-04-16 22:31] LABS: ALK PHOS 198 U/L (45-117)
[2021-04-16 22:36] LABS: LACTIC ACID 4.8 mmol/L (0.4-2.0)
[2021-04-16 22:55] LABS: ANION GAP 17 MMOL/L (8-16); CALCIUM < 5.0 mg/dL (8.5-10.1)
[2021-04-16 23:06] LABS: MAGNESIUM 0.6 mg/dL (1.8-2.4)
[2021-04-16 23:10] LABS: PHOSPHOROUS 5.8 mg/dL (2.5-4.9)
[2021-04-16] MEDS ORDERED: POTASSIUM CHLORIDE 20 MEQ PREMIX IVPB 100 ML IVPB ONE (23:20)
[2021-04-16] MEDS ORDERED: MAGNESIUM SULF 50% (8.12 MEQ/2 ML-1 GM VIAL) IVPB ONE (23:20)
[2021-04-16 23:24] LABS: ARTERIAL BLOOD GAS PCO2 < 16.70 mmHg (35-45); ARTERIAL BLOOD GAS PO2 182.9 mmHg (80-100); ARTERIAL BLOOD GAS pH 7.472 (7.350-7.450)
[2021-04-16] MEDS ORDERED: MAGNESIUM SULFATE IN WATER 2 GM/50 ML IVPB IVPB ONE (23:25)
[2021-04-16 23:26] LABS: VENT MODE MP
[2021-04-16] MEDS ORDERED: KCL 10 MEQ IVPB 10 MEQ/100 ML INFUS.BAG IVPB ONE (23:26)
[2021-04-16] MEDS ORDERED: KCL 10 MEQ IVPB 10 MEQ/100 ML INFUS.BAG IVPB SCH (23:30)
[2021-04-16] MEDS: KCL 10 MEQ IVPB 10 MEQ/100 ML INFUS.BAG IVPB SCH (23:49)
[2021-04-17] MEDS ORDERED: SODIUM CHLORIDE 1,000 ML IV SCH (00:45)
[2021-04-17] MEDS ORDERED: SODIUM CHLORIDE 0.9% 500 ML INFUS.BAG IV ONE (00:48)
[2021-04-17] MEDS ORDERED: KCL 10 MEQ IVPB 10 MEQ/100 ML INFUS.BAG IVPB ONE ×2 (01:15→02:20)
[2021-04-17] MEDS: KCL 10 MEQ IVPB 10 MEQ/100 ML INFUS.BAG IVPB SCH ×4 (01:22→10:44)
[2021-04-17 01:40] LABS: EPI CELLS 8 /uL (0-25.1); HYALINE CASTS 3 /uL (0-3.1); PH,URINE 6.5 (5.0-8.0); URINE APPEARANCE TURBID; URINE BACTERIA 5256 /uL (0-1359); URINE BILIRUBIN NEGATIVE (NEGATIVE); URINE COLOR YELLOW; URINE GLUCOSE (UA) NEGATIVE (NEGATIVE); URINE KETONE NEGATIVE (NEGATIVE); URINE LEUK ESTERASE 3+ (NEGATIVE); URINE NITRITE POSITIVE (NEGATIVE); URINE PROTEIN 1+ (NEGATIVE); URINE RBC 31 /uL (0-23.9); URINE UROBILINOGEN 0.2 mg/dL (0.2-1.0); URINE WBC 3904 /uL (0-25.8)
[2021-04-17] MEDS ORDERED: SODIUM CHLORIDE 500 ML IV STA (02:05)
[2021-04-17] MEDS ORDERED: SODIUM CHLORIDE 1,000 ML IV STA ×2 (03:33→11:57)
[2021-04-17] MEDS ORDERED: PIPERACILLIN/TAZOB 2.25 GM 2.25 GM/50 ML BAG IVPB ONE (04:17)
[2021-04-17 04:19] LABS: CHLORIDE 117 mmol/L (98-107); SODIUM 144 mmol/L (136-145)
[2021-04-17 04:22] LABS: ALBUMIN 0.9 g/dl (3.4-5.0); ANION GAP 12 MMOL/L (8-16); BLOOD UREA NITROGEN 21.4 mg/dL (7-18); CO2 15 mmol/L (21-32); GLUCOSE,RANDOM 91 mg/dL (74-106); MAGNESIUM 1.6 mg/dL (1.8-2.4)
[2021-04-17 04:24] LABS: CREATININE 1.1 mg/dL (0.55-1.3); PHOSPHOROUS 4.1 mg/dL (2.5-4.9); SGPT/ALT 15 U/L (13-61)
[2021-04-17 04:25] LABS: SGOT/AST 30 U/L (15-37)
[2021-04-17 04:26] LABS: BILIRUBIN,TOTAL 0.4 mg/dL (0.2-1); TOT PROT 4.2 g/dl (6.4-8.2)
[2021-04-17] MEDS: NOREPINEPHRINE BITARTRATE 16,000 MCG in SODIUM CHLORIDE 484 ML IV SCH (04:40)
[2021-04-17 04:43] LABS: ALK PHOS 149 U/L (45-117)
[2021-04-17] MEDS: PIPERACILLIN/TAZOB 2.25 GM 2.25 GM in DEXTROSE 5%-WATER - 50 ML IVPB SCH ×2 (04:43→09:29)
[2021-04-17] MEDS ORDERED: MAGNESIUM SULF 50% (8.12 MEQ/2 ML-1 GM VIAL) IVPB ONE ×2 (05:24→08:23)
[2021-04-17] MEDS ORDERED: LACTATED RINGERS SOLUTION 1,000 ML/1,000 ML INFUS.BAG IV SCH ×3 (05:45→14:00)
[2021-04-17] MEDS ORDERED: MAGNESIUM SULFATE IN WATER 2 GM/50 ML IVPB IVPB ONE (06:00)
[2021-04-17] MEDS ORDERED: HEPARIN NA (PORCINE) 5,000 UNITS/ML 1ML VIAL SQ SCH (06:00)
[2021-04-17] MEDS ORDERED: VASOPRESSIN 40 UNITS/100 ML BAG IV SCH ×2 (06:30→09:00)
[2021-04-17] MEDS: CARBIDOPA/LEVODOPA 25/100 TABLET (FP) PO SCH ×5 (06:41→21:15)
[2021-04-17] MEDS ORDERED: LEVOTHYROXINE NA 50 MCG TABLET (FP) PO SCH (07:00)
[2021-04-17 07:16] LABS: BASO % 0.1 % (0-2.0); EOS % 0.2 % (0-4.5); HEMATOCRIT 25.2 % (32.4-45.2); HEMOGLOBIN 7.8 GM/dL (10.7-15.3); LYMPH % 5.9 % (8-40); MCH 32.9 pg (25.7-33.7); MCHC 31.2 g/dl (32.0-36.0); MEAN CELL VOLUME 105.6 fl (80-96); MEAN PLT VOLUME 8.8 fl (7.5-11.1); MONO % 5.6 % (3.8-10.2); NEUT % 88.2 % (42.8-82.8); PLATELET COUNT 195 10^3/uL (134-434); RBC 2.38 M/mm3 (3.60-5.2); RDW 20.2 % (11.6-15.6); WHITE BLOOD COUNT 19.1 K/mm3 (4.0-10.0)
[2021-04-17 07:32] LABS: CHLORIDE 115 mmol/L (98-107); SODIUM 141 mmol/L (136-145)
[2021-04-17 07:40] LABS: ANION GAP 13 MMOL/L (8-16); BLOOD UREA NITROGEN 21.4 mg/dL (7-18); CO2 13 mmol/L (21-32); GLUCOSE,RANDOM 90 mg/dL (74-106); MAGNESIUM 1.5 mg/dL (1.8-2.4)
[2021-04-17 07:43] LABS: CREATININE 1.2 mg/dL (0.55-1.3); PHOSPHOROUS 4.4 mg/dL (2.5-4.9); SGOT/AST 37 U/L (15-37); SGPT/ALT 18 U/L (13-61)
[2021-04-17 07:45] LABS: BILIRUBIN,TOTAL 0.6 mg/dL (0.2-1)
[2021-04-17 07:46] LABS: ALK PHOS 177 U/L (45-117)
[2021-04-17] MEDS ORDERED: PIPERACILLIN/TAZOBACTAM 2.25 GM VIAL IVPB ONE (09:08)
[2021-04-17] MEDS ORDERED: DEXTROSE 5%-WATER - 50 ML IVPB ONE (09:08)
[2021-04-17 09:28] LABS: ANISOCYTOSIS 2+; MACROCYTOSIS 2+; OVALOCYTE 1+; PLATELET ESTIMATE NORMAL; TEAR DROP CELLS 1+
[2021-04-17] MEDS: VASOPRESSIN 40 UNITS/100 ML BAG IV SCH (09:45)
[2021-04-17] MEDS ORDERED: PANTOPRAZOLE SODIUM 40 MG VIAL IVPUSH SCH (10:00)
[2021-04-17] MEDS ORDERED: FAMOTIDINE 20 MG TABLET PO SCH (10:00)
[2021-04-17] MEDS ORDERED: MUPIROCIN 2% TOPICAL OINTMENT FOR DECOLONIZATION NS SCH ×2 (10:00→22:00)
[2021-04-17] MEDS ORDERED: POTASSIUM GLUCONATE 99 MG PO SCH (10:00)
[2021-04-17] MEDS ORDERED: LEVOTHYROXINE SODIUM 100 MCG VIAL IVPUSH SCH (10:00)
[2021-04-17 10:06] LABS: CALCIUM < 5.0 mg/dL (8.5-10.1)
[2021-04-17] MEDS ORDERED: CALCIUM GLUCONATE IN NACL 1 GM/50 ML BAG IVPB ONE (10:30)
[2021-04-17 11:16] VITALS: BMI 14.8
[2021-04-17] MEDS ORDERED: CASPOFUNGIN ACETATE 70 MG in SODIUM CHLORIDE 250 ML IVPB ONE (13:30)
[2021-04-17] MEDS: TRIAMCINOLONE ACET 0.1% CREAM 15 GM TUBE TP SCH ×2 (13:40→21:14)
[2021-04-17] MEDS ORDERED: ENOXAPARIN NA (PORCINE) 40 MG/0.4 ML DISP.SYRIN SQ SCH (14:00)
[2021-04-17] MEDS: VANCOMYCIN 1 GRAM (PRE-DOCKED) 1,000 MG/250 ML BAG IVPB SCH (14:08)
[2021-04-17] MEDS ORDERED: DEXTROSE 5%-WATER 100 ML IVPB ONE (16:51)
[2021-04-17] MEDS ORDERED: MEROPENEM 1 GM VIAL (RESTRICTED TO ID) IVPB ONE (16:51)
[2021-04-17 17:48] LABS: CALCIUM 5.2 mg/dL (8.5-10.1)
[2021-04-17] MEDS: MEROPENEM 1 GM in DEXTROSE 5%-WATER 100 ML IVPB SCH (17:48)
[2021-04-17] MEDS ORDERED: CALCIUM GLUCONATE 10% - 1,000 MG/10 ML VIAL IVPB ONE (17:54)
[2021-04-17] MEDS ORDERED: DONEPEZIL HCL 5 MG TABLET (FP) PO SCH (22:00)
[2021-04-17] MEDS ORDERED: VANCOMYCIN 500 MG in DEXTROSE 5%-WATER 100 ML IVPB SCH (22:00)
[2021-04-17] MEDS ORDERED: CHLORHEXIDINE GLUCONATE 4% CLEANSER FOR DECOLONIZATION TP SCH ×2 (22:00)
[2021-04-17] MEDS ORDERED: SENNOSIDES 8.6MG TABLET (FP) PO SCH (22:00)
[2021-04-17] MEDS ORDERED: ZINC OXIDE 20% TOPICAL OINTMENT 30 GM TUBE TP SCH (22:00)
[2021-04-18] MEDS ORDERED: MEROPENEM 1 GM VIAL (RESTRICTED TO ID) IVPB ONE (01:18)
[2021-04-18] MEDS ORDERED: DEXTROSE 5%-WATER 100 ML IVPB ONE (01:18)
[2021-04-18] MEDS: VANCOMYCIN 1 GRAM (PRE-DOCKED) 1,000 MG/250 ML BAG IVPB SCH (01:25)
[2021-04-18] MEDS: MEROPENEM 1 GM in DEXTROSE 5%-WATER 100 ML IVPB SCH (01:25)
[2021-04-18 02:16] VITALS: TEMP 97.8
[2021-04-18] MEDS ORDERED: PIPERACILLIN/TAZOB 2.25 GM 2.25 GM in DEXTROSE 5%-WATER - 50 ML IVPB SCH (03:00)
[2021-04-18] MEDS: NOREPINEPHRINE BITARTRATE 16,000 MCG in SODIUM CHLORIDE 484 ML IV SCH (06:37)
[2021-04-18] MEDS: VASOPRESSIN 40 UNITS/100 ML BAG IV SCH (06:39)
[2021-04-18] MEDS: CARBIDOPA/LEVODOPA 25/100 TABLET (FP) PO SCH (06:39)
[2021-04-18 06:45] VITALS: BP 96/77; PULSE 119
[2021-04-18 06:56] LABS: HEMATOCRIT 20.2 % (32.4-45.2); MCH 32.8 pg (25.7-33.7); MCHC 30.5 g/dl (32.0-36.0); MEAN CELL VOLUME 107.3 fl (80-96); PLATELET COUNT 166 10^3/uL (134-434); RBC 1.88 M/mm3 (3.60-5.2); RDW 20.9 % (11.6-15.6); WHITE BLOOD COUNT 11.1 K/mm3 (4.0-10.0)
[2021-04-18 07:12] LABS: HEMOGLOBIN 6.2 GM/dL (10.7-15.3)
[2021-04-18 07:29] LABS: CHLORIDE 114 mmol/L (98-107); SODIUM 140 mmol/L (136-145)
[2021-04-18] MEDS ORDERED: MORPHINE SULFATE/0.9% NACL/PF 100 MG/100 ML BAG IVPB SCH (07:30)
[2021-04-18 07:33] LABS: ALBUMIN 0.9 g/dl (3.4-5.0); ANION GAP 17 MMOL/L (8-16); BLOOD UREA NITROGEN 14.9 mg/dL (7-18); CO2 9 mmol/L (21-32)
[2021-04-18 07:34] LABS: GLUCOSE,RANDOM 109 mg/dL (74-106)
[2021-04-18 07:36] LABS: PHOSPHOROUS 6.6 mg/dL (2.5-4.9); SGPT/ALT 24 U/L (13-61)
[2021-04-18 07:37] LABS: SGOT/AST 53 U/L (15-37)
[2021-04-18 07:38] LABS: BILIRUBIN,TOTAL 0.4 mg/dL (0.2-1); TOT PROT 4.4 g/dl (6.4-8.2)
[2021-04-18 07:44] LABS: ALK PHOS 168 U/L (45-117)
[2021-04-18 07:45] LABS: CALCIUM 5.6 mg/dL (8.5-10.1)
[2021-04-18] MEDS ORDERED: ENOXAPARIN NA (PORCINE) 30 MG/0.3 ML DISP.SYRIN SQ SCH (10:00)
[2021-04-18 10:05] LABS: ANISOCYTOSIS 1+; MACROCYTOSIS 1+; PLATELET ESTIMATE NORMAL; TEAR DROP CELLS 1+
== END 2021-04-18 08:30 | disposition expired | DRG 871 ==
LOC: JER 20:09 → JERBED 21:37 → JICU 04-17 05:46
PROVIDERS: ADMIT Family Medicine; ATTEND Family Medicine
PROC: 02H633Z Insertion of Infusion Device into Right Atrium, Percutaneous Approach (ICD-10-PCS; principal; 2021-04-16)
DX: A41.9 Sepsis, unspecified organism (principal); R65.21 Severe sepsis with septic shock; N17.9 Acute kidney failure, unspecified; N39.0 Urinary tract infection, site not specified; R64 Cachexia; L02.211 Cutaneous abscess of abdominal wall; K50.90 Crohn's disease, unspecified, without complications; F03.90 Unspecified dementia, unspecified severity, without behavioral disturbance, psychotic disturbance, mood disturbance, and anxiety; E03.9 Hypothyroidism, unspecified; I12.9 Hypertensive chronic kidney disease with stage 1 through stage 4 chronic kidney disease, or unspecified chronic kidney disease; N18.9 Chronic kidney disease, unspecified; G20 Parkinson's disease; F02.80 Dementia in other diseases classified elsewhere, unspecified severity, without behavioral disturbance, psychotic disturbance, mood disturbance, and anxiety; E87.6 Hypokalemia; E83.42 Hypomagnesemia; L89.150 Pressure ulcer of sacral region, unstageable; D64.9 Anemia, unspecified; Z66 Do not resuscitate
CPT/HCPCS: 36415; 36600; 71045-TC-FY; 80053; 81003; 82310; 82330; 82803; 83605; 83735; 83970; 84100; 84484; 85025; 85610; 85730; 86850; 86900; 86901; 87040; 87070; 87086; 87186; 87205; 87804; 93005; 93010; 93970-TC; 99285-25; C9803; J1644; J3490; U0003; U0005